=== PATIENT | female | born 1930 | race Caucasian/White ===

== ENCOUNTER → 2016-09-20 | Outpatient (CLI) | payer OTHER ==
[~2016-09-20] MED LIST: ACET-1311 PO; ACET325T96 PO; AMLO-110 PO; AMT24 PO; APIX1TAB PO; APR25 PO; ATOR-24 PO; BISA10SU7 RE; CALC-452 PO; CALC500C3 PO; CALCTAB13 PO; CITA10TA8 PO; CITA20TA4 PO; CLC100X PO; CLOP1TAB54 PO; CYAN10002 IM; CYNI1000 IM; DEXT20CA PO; DOCU-94 PO; FURO-85 PO; GABA-113 PO; HEALTH SHAKE PO; IMDSR60 PO; INSDGI SC; LACT10SO17 PO; LEVO150T PO; LEVO175T3 PO; LINA1CAP PO; LISI40TA PO; LPR25 PO; MAGN400T6 PO; MOML PO; MULTTAB58 PO; NRV5 PO; NTRGSL4 SL; NVLGI SC; POTA-335 PO; POTA20TA13 PO; PRLSR20 PO; SENN8.6T94 PO; WARF-281 PO; WARF7.5T4 PO; ZNTT/150 PO
[2016-09-20 09:26] LABS: PROTHROMBIN TIME (PATIENT) 40.1 SECONDS (9.0-12.0)
[2016-09-20 09:40] LABS: INR 3.6 (0.9-1.1)
== END ==
LOC: C.LABUPNIT 08:32
PROVIDERS: ATTEND Family Medicine
DX: I25.10 Atherosclerotic heart disease of native coronary artery without angina pectoris (principal)

== ENCOUNTER → 2016-10-04 | Outpatient (CLI) | payer OTHER ==
[2016-10-04 10:43] LABS: ESTIMATED AVERAGE GLUCOSE 140 mg/dl; HA1C FLAG Normal (Normal)
--- NOTE | 2016-10-09 12:08 | CODING QUERY MEDICAL NECESSITY ---
SUPPORTING DIAGNOSIS NEEDED Dr. Alston, A supporting diagnosis is required for the test/procedure performed on this patient in order for us to be reimbursed by the patient's insurance. Please provide a supporting diagnosis for the following test/procedure listed below next to the test name along with your signature. *If there is no additional diagnosis for this patient that would support the following test/procedure please document that below next to the test/procedure. Test(s)/Procedure(s) that require a supporting diagnosis: * [id number] GLYCATED HEMOGLOBIN DIAGNOSIS: DATE OF SERVICE: 10/04/16 Provider Signature: Date: Thank you Saran Hines [facility] Information Management Once completed, please kindly fax back to [phone] For questions please call [phone]
== END ==
LOC: C.LABUPNIT 08:05
PROVIDERS: ATTEND Family Medicine
DX: I48.91 Unspecified atrial fibrillation (principal); E11.9 Type 2 diabetes mellitus without complications

== ENCOUNTER → 2016-10-11 | Outpatient (CLI) | payer OTHER ==
[2016-10-11 09:19] LABS: INR 3.5 (0.9-1.1); PROTHROMBIN TIME (PATIENT) 39.8 SECONDS (9.0-12.0)
--- NOTE | 2016-10-18 12:09 | CODING QUERY NO DIAGNOSIS ---
TREATMENT RENDERED WITHOUT A DIAGNOSIS : 1930 To promote full compliance with coding requirements relating to patient care, physician participation is requested in all cases of digital technician uncertainty. Please assist us with providing a diagnosis/symptom for the test(s) below: A diagnosis/symptom was not documented on your Order. A valid diagnosis/symptom is required to bill all insurances. Please remember that we are unable to code a diagnosis of rule out, probable, possible, questionable, or suspected. DOS: 10/11/16 Tests that require a diagnosis: * PROTHROMBIN TIME PRO DIAGNOSIS: Provider Signature: Date: Thank you Mirlande Solis [employer] Information Management Once completed, please kindly fax back to [phone] For questions please call [phone]
== END ==
LOC: C.LABUPNIT 08:54
PROVIDERS: ATTEND Family Medicine
DX: I48.91 Unspecified atrial fibrillation (principal)

== ENCOUNTER → 2016-10-17 | Outpatient (CLI) | payer OTHER ==
[2016-10-17 08:50] LABS: BASO % 0.4 %; BASO ABS # 0.02 K/uL (0-0.2); COMPLETE YES; EOS % 3.8 %; HEMATOCRIT 32.9 % (37-47); LYMPH % 44.6 %; LYMPH ABS # 1.99 K/uL (1.2-3.4); MEAN CELL VOLUME 96.5 fL (80-100); MEAN CORPUSCULAR HEMOGLOBIN 32.6 pg (25-34); MEAN CORPUSCULAR HGB CONC 33.7 g/dl (32-36); MEAN PLATELET VOLUME 11.6 fL (7.4-10.4); MONO % 11.4 %; NEUT % 39.8 %; PLATELET COUNT 150 K/uL (130-400); RED BLOOD COUNT 3.41 M/uL (4.2-5.4); WHITE BLOOD COUNT 4.46 K/uL (4.8-10.8)
[2016-10-17 08:56] LABS: BLOOD UREA NITROGEN 22 mg/dl (7-18); BUN/CREATININE RATIO 24.5 (10-20); CALCIUM 8.4 mg/dl (8.5-10.1); CARBON DIOXIDE 25 mmol/L (21-32); CHLORIDE 108 mmol/L (98-107); CREATININE 0.89 mg/dl (0.60-1.20); GLUCOSE 105 mg/dl (70-99); POTASSIUM 4.1 mmol/L (3.5-5.1); SODIUM 143 mmol/L (136-145)
[2016-10-17 08:58] LABS: INR 2.6 (0.9-1.1); PROTHROMBIN TIME (PATIENT) 28.8 SECONDS (9.0-12.0)
== END ==
LOC: C.LABUPNIT 08:32
PROVIDERS: ATTEND Family Medicine
DX: I70.1 Atherosclerosis of renal artery (principal)

== ENCOUNTER → 2016-10-21 | Outpatient (CLI) | payer OTHER ==
[2016-10-21 10:16] LABS: BLOOD UREA NITROGEN 22 mg/dl (7-18); BUN/CREATININE RATIO 25.6 (10-20); CALCIUM 8.5 mg/dl (8.5-10.1); CARBON DIOXIDE 26 mmol/L (21-32); CHLORIDE 106 mmol/L (98-107); CREATININE 0.85 mg/dl (0.60-1.20); GLUCOSE 99 mg/dl (70-99); MAGNESIUM 2.2 mg/dl (1.8-2.4); POTASSIUM 4.1 mmol/L (3.5-5.1); SODIUM 142 mmol/L (136-145)
== END ==
LOC: C.LABUPNIT 08:46
PROVIDERS: ATTEND Family Medicine
DX: I15.9 Secondary hypertension, unspecified (principal); F22 Delusional disorders

== ENCOUNTER → 2016-10-24 | Outpatient (CLI) | payer OTHER ==
[2016-10-24 09:18] LABS: INR 3.5 (0.9-1.1); PROTHROMBIN TIME (PATIENT) 39.9 SECONDS (9.0-12.0)
== END ==
LOC: C.LABUPNIT 08:20
PROVIDERS: ATTEND Family Medicine
DX: I48.1 Persistent atrial fibrillation (principal)

== ENCOUNTER → 2016-10-25 | Outpatient (CLI) | payer OTHER ==
[2016-10-25 09:45] LABS: INR 3.4 (0.9-1.1); PROTHROMBIN TIME (PATIENT) 38.8 SECONDS (9.0-12.0)
== END ==
LOC: C.LABUPNIT 09:13
PROVIDERS: ATTEND Family Medicine
DX: I48.91 Unspecified atrial fibrillation (principal)

== ENCOUNTER → 2016-10-28 | Outpatient (CLI) | payer OTHER ==
--- NOTE | 2016-10-28 17:35 | ECHOCARDIOGRAM REPORT ---
*NOTICE TO RECEIVING LIBERTARIAN AGENCY This information is strictly Confidential and protected under [place] law. [place] law prohibits you from making any further disclosure of this information unless further disclosure is expressly permitted by the written consent of the person to whom it pertains or is authorized by law. A general authorization for the release of medical or other information is not sufficient for this purpose. Hospital accepts no responsibility if the information is made available to any other person, INCLUDING THE PATIENT. Interpretation Summary * Name: DIANA GLYNN Study Date: 10/28/2016 02:14 PM BP: 163/66 mmHg * Patient Location: [facility] HR: 90 * : 1930 (M/d/yyyy) Gender: Female Height: 65 in * Age: 86 yrs Ethnicity: [place] Weight: 145 lb * Ordering Physician: Adair Alston * Performed By: Lucia Latham * * Reason For Study: SYNCOPE * BSA: 1.7 m2 * -- Conclusions -- * 1. Small LV cavity size. Moderate concentric LVH with basal septal asymmetric hypertrophy. * 2. Hyperdynamic LV function. LVEF >70%. No regional wall motion abnormalities. * 3. Borderline dilated RV, normal RV function. * 4. Mild aortic valve sclerosis without stenosis. Mild aortic insufficiency * 5. Thickened mitral valve with mitral annular calcification. * 6. Mild mitral stenosis, mild mitral regurgitation. * 7. Mildly dilated ascending aorta * 8. Compared with prior study on 01/29/2016: No significant change Procedure Details * A complete two-dimensional transthoracic echocardiogram was performed (2D, M-mode, Doppler and color flow Doppler). Left Ventricle * The left ventricular cavity is small. * There is moderate concentric left ventricular hypertrophy. * Focal thickening of the basal septum with no evidence of left ventricular outflow obstruction. * Ejection Fraction = >70 %. * No regional wall motion abnormalities noted. Right Ventricle * Borderline right ventricular enlargement. * The right ventricular systolic function is normal as assessed by tricuspid annular plane systolic excursion (TAPSE) (normal >1.5 cm). Atria * The left atrium is severely dilated. * The right atrium is mildly dilated. * No ASD detected; PFO is not assessed. Mitral Valve * There is mild to moderate mitral annular calcification. * The mitral valve leaflets appear thickened, but open well. * There is mild mitral stenosis. * There is mild mitral regurgitation. Tricuspid Valve * The tricuspid valve is not well visualized. * There is trace tricuspid regurgitation. Aortic Valve * Aortic valve sclerosis mild, without significant aortic valvular stenosis. * The aortic valve is trileaflet. * Subvalvular turbulence * Mild aortic regurgitation. Pulmonic Valve * The pulmonary valve is inadequately visualized, but the Doppler data is adequate for interpretation. * There is no pulmonic valvular stenosis. * Mild pulmonic valvular regurgitation. Great Vessels * Mildly dilated ascending aorta. Pericardium/Pleural * There is no pericardial effusion. MMode 2D Measurements and Calculations IVSd 1.7 cm IVSs 2.1 cm LVIDd 4.1 cm LVIDs 2.3 cm LVPWd 1.3 cm LVPWs 2.1 cm IVS/LVPW 1.3 FS 45.2 % EDV(Teich) 74.6 ml ESV(Teich) 17.2 ml EF(Teich) 76.9 % EDV(cubed) 69.4 ml ESV(cubed) 11.5 ml EF(cubed) 83.5 % % IVS thick 24.8 % % LVPW thick 66.6 % LV mass(C)d 231.6 grams LV mass(C)dI 134.2 grams/m\S\2 LV mass(C)s 211.4 grams LV mass(C)sI 122.5 grams/m\S\2 SV(Teich) 57.4 ml SI(Teich) 33.3 ml/m\S\2 SV(cubed) 57.9 ml SI(cubed) 33.6 ml/m\S\2 ACS 0.63 cm LA dimension 4.7 cm asc Aorta Diam 3.9 cm LVOT diam 1.7 cm LVOT area 2.2 cm\S\2 LVAd ap4 26.8 cm\S\2 LVLd ap4 7.1 cm EDV(MOD-sp4) 80.5 ml EDV(sp4-el) 85.4 ml LVAs ap4 11.4 cm\S\2 LVLs ap4 5.3 cm ESV(MOD-sp4) 20.5 ml ESV(sp4-el) 20.9 ml EF(MOD-sp4) 74.5 % EF(sp4-el) 75.6 % LVAd ap2 26.4 cm\S\2 LVLd ap2 7.7 cm EDV(MOD-sp2) 72.9 ml EDV(sp2-el) 76.9 ml LVAs ap2 11.0 cm\S\2 LVLs ap2 6.1 cm ESV(MOD-sp2) 17.6 ml ESV(sp2-el) 16.8 ml EF(MOD-sp2) 75.8 % EF(sp2-el) 78.1 % LVLd %diff 7.3 % EDV(MOD-bp) 79.5 ml LVLs %diff 12.5 % ESV(MOD-bp) 20.0 ml EF(MOD-bp) 74.8 % SV(MOD-sp4) 60.0 ml SI(MOD-sp4) 34.8 ml/m\S\2 SV(MOD-sp2) 55.3 ml SI(MOD-sp2) 32.0 ml/m\S\2 SV(MOD-bp) 59.4 ml SI(MOD-bp) 34.4 ml/m\S\2 SV(sp4-el) 64.6 ml SI(sp4-el) 37.4 ml/m\S\2 SV(sp2-el) 60.1 ml SI(sp2-el) 34.8 ml/m\S\2 Doppler Measurements and Calculations MV E max stephanie 104.2 cm/sec MV A max stephanie 142.7 cm/sec MV E/A 0.73 MV V2 max 169.3 cm/sec MV max PG 11.5 mmHg MV V2 mean 99.8 cm/sec MV mean PG 4.5 mmHg MV V2 VTI 44.4 cm MVA(VTI) 2.1 cm\S\2 MV P1/2t max stephanie 143.1 cm/sec MV P1/2t 68.9 msec MVA(P1/2t) 3.2 cm\S\2 MV dec slope 607.9 cm/sec\S\2 MV dec time 0.31 sec Ao V2 max 206.0 cm/sec Ao max PG 17.0 mmHg Ao max PG (full) 7.2 mmHg AXEL(V,A) 1.7 cm\S\2 AXEL(V,D) 1.7 cm\S\2 AI max stephanie 327.0 cm/sec AI max PG 42.8 mmHg AI dec slope 172.6 cm/sec\S\2 AI P1/2t 554.9 msec LV V1 max PG 9.8 mmHg LV V1 mean PG 5.6 mmHg LV V1 max 156.2 cm/sec LV V1 mean 110.7 cm/sec LV V1 VTI 41.5 cm MR max stephanie 539.8 cm/sec MR max PG 116.6 mmHg SV(LVOT) 92.9 ml SI(LVOT) 53.9 ml/m\S\2 PA V2 max 89.1 cm/sec PA max PG 3.2 mmHg PI end-d stephanie 146.4 cm/sec TR max stephanie 241.2 cm/sec
== END ==
LOC: C.CPL 13:06
PROVIDERS: ATTEND Family Medicine
DX: R55 Syncope and collapse (principal)

== ENCOUNTER → 2016-10-30 | Outpatient (CLI) | payer OTHER ==
[2016-10-30 09:14] LABS: INR 1.5 (0.9-1.1); PROTHROMBIN TIME (PATIENT) 16.3 SECONDS (9.0-12.0)
== END ==
LOC: C.LABUPNIT 08:54
PROVIDERS: ATTEND Family Medicine
DX: I48.91 Unspecified atrial fibrillation (principal)

== ENCOUNTER → 2016-11-04 | Outpatient (CLI) | payer OTHER ==
[2016-11-04 10:01] LABS: INR 2.6 (0.9-1.1); PROTHROMBIN TIME (PATIENT) 28.9 SECONDS (9.0-12.0)
== END ==
LOC: C.LABUPNIT 09:32
PROVIDERS: ATTEND Family Medicine
DX: I48.91 Unspecified atrial fibrillation (principal)

== ENCOUNTER → 2016-11-12 | Outpatient (CLI) | payer OTHER ==
[2016-11-12 09:59] LABS: PROTHROMBIN TIME (PATIENT) 49.7 SECONDS (9.0-12.0)
[2016-11-12 10:09] LABS: INR 4.4 (0.9-1.1)
--- NOTE | 2016-11-22 08:10 | CODING QUERY NO DIAGNOSIS ---
TREATMENT RENDERED WITHOUT A SIGNATURE : 1930 To promote full compliance with coding requirements relating to patient care, physician participation is requested in all cases of academic vice president uncertainty. Please assist us with providing a SIGNATURE for the test(s) below: A SIGNATURE was not documented on your Order. A valid SIGNATURE is required to bill all insurances. Please remember that we are unable to code a diagnosis of rule out, probable, possible, questionable, or suspected. Tests that require a SIGNATURE: DOS: 11/12/16 * PROTHROMBIN TIME PRO DIAGNOSIS: I48.91 Provider Signature: Date: Thank you Mirlande Solis Health Information Management Once completed, please kindly fax back to [phone] For questions please call [phone]
== END ==
LOC: C.LABUPNIT 09:30
PROVIDERS: ATTEND Family Medicine
DX: I48.91 Unspecified atrial fibrillation (principal)

== ENCOUNTER → 2016-11-18 | Outpatient (CLI) | payer OTHER ==
[2016-11-18 10:35] LABS: INR 1.9 (0.9-1.1); PROTHROMBIN TIME (PATIENT) 21.2 SECONDS (9.0-12.0)
== END ==
LOC: C.LABUPNIT 10:00
PROVIDERS: ATTEND Family Medicine
DX: I70.1 Atherosclerosis of renal artery (principal)

== ENCOUNTER → 2016-11-22 | Outpatient (CLI) | payer OTHER ==
[2016-11-22 10:01] LABS: INR 2.7 (0.9-1.1)
== END ==
LOC: C.LABUPNIT 09:27
PROVIDERS: ATTEND Family Medicine
DX: I70.1 Atherosclerosis of renal artery (principal)

== ENCOUNTER → 2016-11-29 | Outpatient (CLI) | payer OTHER ==
[2016-11-29 08:47] LABS: INR 2.3 (0.9-1.1)
--- NOTE | 2016-12-06 08:32 | CODING QUERY NO DIAGNOSIS ---
TREATMENT RENDERED WITHOUT A DIAGNOSIS : 1930 To promote full compliance with coding requirements relating to patient care, physician participation is requested in all cases of stunner animal uncertainty. Please assist us with providing a diagnosis/symptom for the test(s) below: A diagnosis/symptom was not documented on your Order. A valid diagnosis/symptom is required to bill all insurances. Please remember that we are unable to code a diagnosis of rule out, probable, possible, questionable, or suspected. Tests that require a diagnosis: DOS: 11/29/16 * PROTHROMBIN TIME PRO DIAGNOSIS: Provider Signature: Date: Thank you Mirlande Solis [employer] Information Management Once completed, please kindly fax back to [phone] For questions please call [phone]
== END ==
LOC: C.LABUPNIT 08:08
PROVIDERS: ATTEND Family Medicine
DX: I48.91 Unspecified atrial fibrillation (principal)

== ENCOUNTER → 2016-12-05 | Outpatient (CLI) | payer OTHER ==
[2016-12-05 09:41] LABS: INR 2.4 (0.9-1.1); PROTHROMBIN TIME (PATIENT) 26.5 SECONDS (9.0-12.0)
== END ==
LOC: C.LABUPNIT 08:55
PROVIDERS: ATTEND Family Medicine
DX: I48.91 Unspecified atrial fibrillation (principal)

== ENCOUNTER → 2016-12-06 | Outpatient (CLI) | payer OTHER ==
[2016-12-06 08:54] LABS: INR 2.3 (0.9-1.1)
== END ==
LOC: C.LABUPNIT 08:33
PROVIDERS: ATTEND Family Medicine
DX: I48.91 Unspecified atrial fibrillation (principal)

== ENCOUNTER → 2016-12-19 | Outpatient (CLI) | payer OTHER ==
[2016-12-19 09:56] LABS: INR 2.4 (0.9-1.1); PROTHROMBIN TIME (PATIENT) 26.1 SECONDS (9.0-12.0)
== END ==
LOC: C.LABUPNIT 09:36
PROVIDERS: ATTEND Family Medicine
DX: I48.91 Unspecified atrial fibrillation (principal)

== ENCOUNTER → 2016-12-20 | Outpatient (CLI) | payer OTHER | LOC: C.LABUPNIT 14:41 | PROVIDERS: ATTEND Family Medicine | DX: J10.1 Influenza due to other identified influenza virus with other respiratory manifestations (principal) ==

== ENCOUNTER → 2016-12-24 | Outpatient (CLI) | payer OTHER ==
[2016-12-24 08:52] LABS: ALT/SGPT 53 U/L (12-78); AST/SGOT 60 U/L (15-37); BLOOD UREA NITROGEN 18 mg/dl (7-18); BUN/CREATININE RATIO 19.4 (10-20); CALCIUM 8.2 mg/dl (8.5-10.1); CARBON DIOXIDE 27 mmol/L (21-32); CHLORIDE 106 mmol/L (98-107); CHOLESTEROL 79 mg/dl (0-200); GLUCOSE 72 mg/dl (70-99); POTASSIUM 4.2 mmol/L (3.5-5.1); SODIUM 140 mmol/L (136-145); TRIGLYCERIDES 79 mg/dl (0-150); VERY LOW DENSITY LIPOPROT CALC 16 mg/dl
[2016-12-24 09:02] LABS: ALB/GLOB RATIO 0.8 (0.9-2); ALKALINE PHOSPHATASE 56 U/L (45-117); CHOLESTEROL/HDL RATIO 2.4; HDL CHOLESTEROL 33 mg/dl; LDL CHOLESTEROL CALCULATED 30 mg/dl
[2016-12-24 09:18] LABS: HEMATOCRIT 36.3 % (37-47); MEAN CORPUSCULAR HEMOGLOBIN 32.1 pg (25-34); MEAN CORPUSCULAR HGB CONC 34.2 g/dl (32-36); PLATELET COUNT 113 K/uL (130-400); PLT ESTIMATE DECREASED; RED BLOOD COUNT 3.86 M/uL (4.2-5.4); WHITE BLOOD COUNT 4.09 K/uL (4.8-10.8)
[2016-12-24 10:17] LABS: ESTIMATED AVERAGE GLUCOSE 143 mg/dl; HA1C FLAG Normal (Normal)
--- NOTE | 2016-12-30 13:17 | CODING QUERY MEDICAL NECESSITY ---
CQSUPPORTING DIAGNOSIS NEEDED A supporting diagnosis is required for the test/procedure performed on this patient in order for us to be reimbursed by the patient's insurance. Please provide a supporting diagnosis for the following test/procedure listed below next to the test name along with your signature. *If there is no additional diagnosis for this patient that would support the following test/procedure please document that below next to the test/procedure. Test(s)/Procedure(s) that require a supporting diagnosis: DOS 12/24/16 VITAMIN D TEST QUERY RETURNED WITH SIGNATURE BUT NO DIAGNOSIS PLEASE ADD DIAGNOSIS TO COVER TEST AND ADD SIGNATURE THANK YOU Provider Signature: Date: Thank you Cary Cabral [facility] Information Management Once completed, please kindly fax back to [phone] For questions please call [phone]
== END ==
LOC: C.LABUPNIT 08:14
PROVIDERS: ATTEND Family Medicine
DX: E78.00 Pure hypercholesterolemia, unspecified (principal); G89.29 Other chronic pain; E11.9 Type 2 diabetes mellitus without complications; E08.42 Diabetes mellitus due to underlying condition with diabetic polyneuropathy; E55.9 Vitamin D deficiency, unspecified

== ENCOUNTER → 2016-12-26 | Outpatient (CLI) | payer OTHER ==
[2016-12-26 15:00] LABS: URINE APPEARANCE CLEAR (CLEAR); URINE BILIRUBIN NEG (NEG); URINE COLOR DK YELLOW; URINE EPITHELIAL CELL AUTO >30 /lpf (0-5); URINE NITRITE NEG (NEG); URINE SPECIFIC GRAVITY 1.017 (1.000-1.030); UROBILINOGEN NEG (NEG); ZZURINE CULT IF INDIC CATH NO
[2016-12-26 15:08] LABS: MANUAL MICROSCOPIC REQUIRED? NO; REVIEW REQ? YES
[2016-12-26 15:25] LABS: URINE PATH CASTS 0-3 WBC CASTS /lpf (0)
== END ==
LOC: C.LABSPEC 13:21
PROVIDERS: ATTEND Family Medicine
DX: N39.0 Urinary tract infection, site not specified (principal)

== ENCOUNTER → 2017-01-02 | Outpatient (CLI) | payer OTHER ==
[2017-01-02 08:47] LABS: PROTHROMBIN TIME (PATIENT) 75.2 SECONDS (9.0-12.0)
[2017-01-02 08:57] LABS: INR 6.5 (0.9-1.1)
--- NOTE | 2017-01-06 14:29 | CODING QUERY NO DIAGNOSIS ---
TREATMENT RENDERED WITHOUT A DIAGNOSIS 30 To promote full compliance with coding requirements relating to patient care, physician participation is requested in all cases of director information uncertainty. Please assist us with providing a diagnosis/symptom for the test(s) below: A diagnosis/symptom was not documented on your Order. A valid diagnosis/symptom is required to bill all insurances. Please remember that we are unable to code a diagnosis of rule out, probable, possible, questionable, or suspected. DOS 01/02/17 Tests that require a diagnosis: * PT/INR DIAGNOSIS: Provider Signature: Date: Thank you Rosmery Leger [facility] Information Management Once completed, please kindly fax back to [phone] For questions please call [phone]
== END ==
LOC: C.LABUPNIT 08:05
PROVIDERS: ATTEND Family Medicine
DX: I48.91 Unspecified atrial fibrillation (principal)

== ENCOUNTER → 2017-01-05 | Outpatient (CLI) | payer OTHER ==
[2017-01-05 11:25] LABS: INR 1.7 (0.9-1.1); PROTHROMBIN TIME (PATIENT) 18.1 SECONDS (9.0-12.0)
== END ==
LOC: C.LABUPNIT 16:48
PROVIDERS: ATTEND Family Medicine
DX: I48.91 Unspecified atrial fibrillation (principal)

== ENCOUNTER → 2017-01-23 | Outpatient (CLI) | payer OTHER | LOC: C.LABUPNIT 08:46 | PROVIDERS: ATTEND Nurse Practitioner Family | DX: E03.9 Hypothyroidism, unspecified (principal) ==

== ENCOUNTER → 2017-02-03 | Outpatient (CLI) | payer OTHER ==
[2017-02-03 11:13] LABS: URINE APPEARANCE CLOUDY (CLEAR); URINE BILIRUBIN NEG (NEG); URINE COLOR YELLOW; URINE EPITHELIAL CELL AUTO >30 /lpf (0-5); URINE NITRITE NEG (NEG); UROBILINOGEN NEG (NEG); ZZURINE CULT IF INDIC CATH YES
[2017-02-03 11:29] LABS: MANUAL MICROSCOPIC REQUIRED? NO; REVIEW REQ? NO; SULFASALICYLIC ACID POS (NEG)
== END ==
LOC: C.LABUPNIT 09:53
PROVIDERS: ATTEND Nurse Practitioner Family
DX: N39.0 Urinary tract infection, site not specified (principal)

== ENCOUNTER 2017-02-24 06:22 | Observation (INO) | payer OTHER ==
[2017-02-24] VITALS (7 sets, daily range): BP systolic 128–210; BP diastolic 59–109; PULSE 62–77; TEMP 36.4–36.8; O2SAT 94–97; BMI 27.6
[~2017-02-24] VITALS: Ht 165.1 cm; Wt 74.3 kg
[~2017-02-24 06:22] MED LIST changes: -ACET-1311 PO; -APIX1TAB PO; -CALC-452 PO; -CALC500C3 PO; -CITA10TA8 PO; -CYNI1000 IM; -DOCU-94 PO; -LEVO175T3 PO; -LINA1CAP PO; -MAGN400T6 PO; -NRV5 PO; -POTA20TA13 PO; -ZNTT/150 PO
[2017-02-24] MEDS ORDERED: SODIUM CHLORIDE 0.9% 500ML 500 ML IV STA (06:35)
[2017-02-24] MEDS ORDERED: MoRPHine SULFATE 4 MG/ML 1 ML CARP\\VIAL IV STA (06:35)
[2017-02-24] MEDS ORDERED: ONDANSETRON INJ 2 MG/ML 2 ML VIAL IV STA (06:35)
[2017-02-24] MEDS ORDERED: SUCRALFATE 1 GM TAB PO STA (06:37)
[2017-02-24] MEDS ORDERED: GI COCKTAIL PO STA (06:37)
[2017-02-24] MEDS ORDERED: FAMOTIDINE 20 MG TAB PO STA (06:37)
[2017-02-24] MEDS ORDERED: ALBUTEROL 0.083% NEBU SOLN 3 ML VIAL INH STA (06:37)
--- NOTE | 2017-02-24 06:45 | EMERGENCY ROOM VISIT NOTE ---
History Report prepared by Santy: Carol Burger Under the Supervision of: Dr. Terell Amador M.D. First contact with patient: 06:28 Chief Complaint: CHEST PAIN Stated Complaint: CHEST PAIN History of Present Illness The patient is an 86 year old female who presents to the Emergency Room with complaints of constant left-sided chest pain that started 5.5 hours ago, around 0100. The history is limited secondary to confusion. When the patient started to experience the pain, detention staff gave her 3 nitro and she fell asleep so they let her sleep. When she woke up around 0400, she was still complaining of chest pain so they did an EKG, which EMS reported showed a complete block so their doctor sent her in. The patient came to the ED via ambulance from [facility]. The patient was given 1 nitroglycerin and 324 mg aspirin en route to the ED. They offered minimal relief of her symptoms. Source of History: patient, EMS History Limited By: other (confusion) Onset: 5.5 hours ago, around 0100 Position: chest (left) Quality: other (left-sided chest pain) Timing: constant Review of Systems See HPI for pertinent positives & negatives. A total of 10 systems reviewed and were otherwise negative. 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 (11) Renal artery atherosclerosis (12) TIA (transient ischemic attack) (13) Vitamin B12 deficiency Family History Hypertension Kidney disease Social History Smoking Status: Never Smoker Alcohol Use: none Drug Use: none Marital Status: single Housing Status: detention Occupation Status: retired Current/Historical Medications Scheduled Acetaminophen Tab (Tylenol), 650 MG PO Q8 Amlodipine (Norvasc), 5 MG PO DAILY Apixaban (Eliquis), 2.5 MG PO BID Atorvastatin (Lipitor), 40 MG PO DAILY Calcium Carbonate-Cholecalcife (Calcium 600 + D 600-200 mg-Unit), 1 TAB PO BID Citalopram Hydrobromide (Celexa), 10 MG PO DAILY Clopidogrel Bisulfate (Plavix), 75 MG PO DAILY Cyanocobalamin (Cyanocobalamin), 1,000 MCG IM WK Dextromethorphan Hbr-Quinidine (Nuedexta), 1 CAP PO BID Docusate Sodium (Colace), 100 MG PO BID Furosemide (Lasix), 20 MG PO QAM Gabapentin (Neurontin), 300 MG PO TID Hydralazine Hcl (Apresoline), 75 MG PO QID Insulin Aspart (Novolog), 0 SC BID Insulin Glargine (Lantus), 10 UNITS SC HS Isosorbide Mononitrate (Isosorbide Mononitrate ER), 60 MG PO BID Levothyroxine Sodium (Levothyroxine Sodium), 1 TAB PO DAILY Linaclotide (Linzess), 145 MCG PO QAM Lisinopril (Zestril), 40 MG PO DAILY Magnesium Oxide (Mag-Ox), 400 MG PO BID Metoprolol Tartrate (Lopressor), 12.5 MG PO BID Multiple Vitamin (Multivitamin), 1 TABLET PO DAILY Potassium Chloride Microencaps (Potassium Chloride Er), 20 MEQ PO DAILY Sennosides (Sennosides), 17.2 MG PO BID Scheduled PRN Acetaminophen (Tylenol), 650 MG PO Q6 PRN for Pain Calcium Carbonate (Tums), 2 TABS PO Q6 PRN for Heartburn Lactulose (Chronulac), 15 ML PO DAILY PRN for Constipation Nitroglycerin (Nitrostat), 0.4 MG SL UD PRN for Chest Pain Ranitidine (Zantac), 150 MG PO Q12 PRN for Heartburn Allergies Coded Allergies: No Known Allergies (Verified , 02/24/17) Physical Exam Vital Signs Date Time Temp Pulse Resp B/P (MAP) Pulse Ox O2 Delivery O2 Flow Rate FiO2 02/24/17 09:00 72 24 157/69 94 Room Air 02/24/17 07:43 78 28 208/92 94 Room Air 02/24/17 06:40 97 Room Air 02/24/17 06:40 97 Room Air 02/24/17 06:37 73 02/24/17 06:25 37.1 74 22 205/88 98 Room Air 02/24/17 06:25 97 Room Air Physical Exam GENERAL: Patient is a healthy-appearing well-nourished older female. Patient is hyperventilating on exam. HEAD: Normocephalic atraumatic EYES: Ocular movements intact pupils equal and react to light OROPHARYNX mucous membranes are moist no exudates present no erythema or edema present NECK: Supple no nuchal rigidity CHEST: Good equal expansion LUNGS: Clear and equal to auscultation CARDIAC: Normal S1 and S2 ABDOMEN: Soft nontender no guarding BACK: No CVA tenderness EXTREMITIES: No pain upon palpation normal muscle strength in all groups no clubbing cyanosis or edema NEURO: Patient is following commands is answering questions appropriately. Alert and oriented x3 Cranial Nerves 2-12 grossly intact Medical Decision & Procedures ER Provider Diagnostic Interpretation: Radiology results as stated below per my review and radiologist interpretation: CHEST ONE VIEW PORTABLE FINDINGS: Mild stable cardiomegaly. Slight fullness pulmonary vasculature. Diaphragms are smooth. IMPRESSION: No acute process. Chronic change. Electronically signed by: Shay Parish M.D. 02/24/2017 6:59 AM Dictated Date/Time: 02/24/2017 6:57 AM Laboratory Results 02/24/17 06:17 Red Blood Count 3.66, Mean Corpuscular Volume 98.4, Mean Corpuscular Hemoglobin 32.8, Mean Corpuscular Hemoglobin Concent 33.3, Mean Platelet Volume 11.6, Neutrophils (%) (Auto) 39.4, Lymphocytes (%) (Auto) 45.1, Monocytes (%) (Auto) 10.3, Eosinophils (%) (Auto) 4.1, Basophils (%) (Auto) 0.9, Neutrophils # (Auto ) 1.85, Lymphocytes # (Auto) 2.11, Monocytes # (Auto) 0.48, Eosinophils # (Auto ) 0.19, Basophils # (Auto) 0.04 02/24/17 06:17 Test 02/24/17 06:17 02/24/17 07:20 02/24/17 08:44 White Blood Count 4.68 K/uL (4.8-10.8) Red Blood Count 3.66 M/uL (4.2-5.4) Hemoglobin 12.0 g/dL (12.0-16.0) Hematocrit 36.0 % (37-47) Mean Corpuscular Volume 98.4 fL (80-100) Mean Corpuscular Hemoglobin 32.8 pg (25-34) Mean Corpuscular Hemoglobin Concent 33.3 g/dl (32-36) Platelet Count 172 K/uL (130-400) Mean Platelet Volume 11.6 fL (7.4-10.4) Neutrophils (%) (Auto) 39.4 % Lymphocytes (%) (Auto) 45.1 % Monocytes (%) (Auto) 10.3 % Eosinophils (%) (Auto) 4.1 % Basophils (%) (Auto) 0.9 % Neutrophils # (Auto) 1.85 K/uL (1.4-6.5) Lymphocytes # (Auto) 2.11 K/uL (1.2-3.4) Monocytes # (Auto) 0.48 K/uL (0.11-0.59) Eosinophils # (Auto) 0.19 K/uL (0-0.5) Basophils # (Auto) 0.04 K/uL (0-0.2) RDW Standard Deviation 52.0 fL (36.4-46.3) RDW Coefficient of Variation 14.5 % (11.5-14.5) Immature Granulocyte % (Auto) 0.2 % Immature Granulocyte # (Auto) 0.01 K/uL (0.00-0.02) Anion Gap 8.0 mmol/L (3-11) Estimated GFR () 68.0 Estimated GFR (Non- 58.7 BUN/Creatinine Ratio 26.3 (10-20) Calcium Level 8.5 mg/dl (8.5-10.1) Total Bilirubin 0.5 mg/dl (0.2-1) Direct Bilirubin mg/dl (0-0.2) Aspartate Amino Transf (AST/SGOT) 21 U/L (15-37) Alanine Aminotransferase (ALT/SGPT) 28 U/L (12-78) Alkaline Phosphatase 66 U/L (45-117) Total Creatine Kinase 85 U/L (26-192) Total Protein 7.2 gm/dl (6.4-8.2) Albumin 3.5 gm/dl (3.4-5.0) Lipase 87 U/L (73-393) Chemistry Specimen Hemolysis Prothrombin Time 11.2 SECONDS (9.0-12.0) Prothromb Time International Ratio 1.0 (0.9-1.1) D-Dimer 300 ug/L FEU (0-500) Bedside Troponin I < 0.030 ng/ml (0-0.045) Labs reviewed by ED physician. Medications Administered Medications (Trade) Dose Ordered Sig/Marcelina Route Start Time Stop Time Status Last Admin Dose Admin Morphine Sulfate (MoRPHine SULFATE INJ) 4 mg NOW STAT IV 02/24/17 06:35 02/24/17 06:37 DC 02/24/17 07:05 4 MG Ondansetron HCl (Zofran Inj) 4 mg NOW STAT IV 02/24/17 06:35 02/24/17 06:37 DC 02/24/17 07:04 4 MG Sodium Chloride 500 ml @ 999 mls/hr Q31M STAT IV 02/24/17 06:35 02/24/17 07:05 DC 02/24/17 07:05 999 MLS/HR Albuterol Sulfate (Ventolin 0.083% 2.5MG/3ML Neb) 2.5 mg NOW STAT INH 02/24/17 06:37 02/24/17 06:39 DC 02/24/17 07:05 2.5 MG Miscellaneous Medication (Gi Cocktail) 24 ml NOW STAT PO 02/24/17 06:37 02/24/17 06:39 DC 02/24/17 07:06 24 ML Famotidine (Pepcid Tab) 20 mg NOW STAT PO 02/24/17 06:37 02/24/17 06:39 DC 02/24/17 07:05 20 MG Sucralfate (Carafate Tab) 1 gm NOW STAT PO 02/24/17 06:37 02/24/17 06:39 DC 02/24/17 07:05 1 GM Al Hydroxide/Mg Hydroxide (Maalox Susp) 30 ml STK-MED ONCE .ROUTE 02/24/17 07:01 02/24/17 07:02 DC 02/24/17 07:06 30 ML Lidocaine HCl (Xylocaine Jelly 2%) 30 ml STK-MED ONCE EXT 02/24/17 07:01 02/24/17 07:03 DC 02/24/17 07:06 30 ML Lorazepam (Ativan Inj) 0.5 mg NOW STAT IV 02/24/17 07:45 02/24/17 07:47 DC 02/24/17 08:05 0.5 MG Furosemide (Lasix Inj) 20 mg NOW STAT IV 02/24/17 07:47 02/24/17 07:49 DC 02/24/17 08:05 20 MG ECG Indication: chest pain Rate (beats per minute): 68 Rhythm: sinus with SA Findings: LBBB, no acute ischemic change Comparison ECG Date: 02/11/2016 Change: no significant change Change: Repeat EKG on 02/24/2017 showed sinus rhythm, rate of 77, short MA, no ectopy, no acute ischemic changes ED Course 0630: Past medical records reviewed. The patient was evaluated in room A10. A complete history and physical examination was performed. 0635: Ordered Sodium Chloride 500 ml @ 999 mls/hr IV, Zofran Inj 4 mg IV, Morphine Sulfate 4 mg IV 0637: Ordered Pepcid Tab 20 mg PO, GI Cocktail 24 ml PO, Albuterol Sulfate 2.5 mg INH 0701: Ordered Maalox Susp 30 ml PO 0745: Ordered Ativan Inj 0.5 mg IV 0747: Ordered Lasix Inj 20 mg IV 0910: Upon reexamination the patient is resting comfortably. I discussed results and treatment plan with the patient and her family. They verbalize agreement and understanding. The patient will be evaluated for further management. 0915: I discussed the patient's case with Dr. Leeann Solorzano, he has agreed to evaluate the patient for further management and care. Medical Decision Differential diagnosis: Etiologies such as cardiac ischemia, aortic dissection, pulmonary embolism, pneumonia, pneumothorax, musculoskeletal, infections, pericarditis, myocarditis , esophageal rupture, gastrointestinal, as well as others were entertained. Medication Reconciliation: I attest that I have personally reviewed the patient' s current medication list. Blood Pressure Screening: Patient was found to have an elevated blood pressure and was referred to their primary care doctor for recheck and further treatment This is an 86-year-old female who presents emergency department complaining of severe chest pain. The patient's chest pain did not respond to nitroglycerin. She was given 324 mg of aspirin. Patient does appear to be hyperventilating search therefore she was given morphine. Repeat exam revealed the patient to still be having her chest pain. She was given a GI cocktail Pepcid and Carafate as well as Ativan. The patient continue to have her chest pain is requesting admission. She has a normal EKG as well as normal CK-MB troponin. I did discuss case with the hospitalist service who agreed to admit the patient. Patient was in agreement with history treatment plan. Consults Time Called: 910 Consulting Physician: Dr. Leeann Solorzano Returned Call: [phone] I discussed the patient's case with Dr. Leeann Solorzano, he has agreed to evaluate the patient for further management and care. Impression Primary Impression: Precordial chest pain Scribe Attestation The scribe's documentation has been prepared under my direction and personally reviewed by me in its entirety. I confirm that the note above accurately reflects all work, treatment, procedures, and medical decision making performed by me. Departure Information Dispostion Being Evaluated By Hospitalist Referrals María Shepard (PCP) Patient Instructions My [facility]
[2017-02-24 06:58] LABS: BASO % 0.9 %; BASO ABS # 0.04 K/uL (0-0.2); COMPLETE YES; EOS % 4.1 %; IG% 0.2 %; LYMPH % 45.1 %; LYMPH ABS # 2.11 K/uL (1.2-3.4); MEAN CELL VOLUME 98.4 fL (80-100); MEAN CORPUSCULAR HEMOGLOBIN 32.8 pg (25-34); MEAN CORPUSCULAR HGB CONC 33.3 g/dl (32-36); MEAN PLATELET VOLUME 11.6 fL (7.4-10.4); MONO % 10.3 %; NEUT % 39.4 %; PLATELET COUNT 172 K/uL (130-400); RED BLOOD COUNT 3.66 M/uL (4.2-5.4); WHITE BLOOD COUNT 4.68 K/uL (4.8-10.8)
--- NOTE | 2017-02-24 07:00 | DIAGNOSTIC IMAGING REPORT ---
CHEST ONE VIEW PORTABLE CLINICAL HISTORY: CHEST PAIN dyspnea COMPARISON STUDY: 02/11/2016 FINDINGS: Mild stable cardiomegaly. Slight fullness pulmonary vasculature. Diaphragms are smooth. IMPRESSION: No acute process. Chronic change. Electronically signed by: Shay Parish M.D. 02/24/2017 6:59 AM Dictated Date/Time: 02/24/2017 6:57 AM
[2017-02-24] MEDS ORDERED: ALUMINUM/MAGNESIUM SUSP 30 ML UDC ONE (07:01)
[2017-02-24] MEDS ORDERED: LIDOCAINE HCL 2% JELLY 30 ML TUBE EXT ONE (07:01)
[2017-02-24] MEDS ORDERED: CYNI1000 IM (07:09)
[2017-02-24] MEDS ORDERED: CITA10TA8 PO (07:09)
[2017-02-24] MEDS ORDERED: LEVO175T3 PO (07:10)
[2017-02-24] MEDS ORDERED: LINA1CAP PO (07:12)
[2017-02-24] MEDS ORDERED: DOCU-94 PO (07:13)
[2017-02-24] MEDS ORDERED: APIX1TAB PO (07:13)
[2017-02-24] MEDS ORDERED: MAGN400T6 PO (07:15)
[2017-02-24] MEDS ORDERED: CALC-452 PO (07:17)
[2017-02-24] MEDS ORDERED: POTA20TA13 PO (07:17)
[2017-02-24] MEDS ORDERED: ZNTT/150 PO (07:25)
[2017-02-24] MEDS ORDERED: CALC500C3 PO (07:25)
[2017-02-24] MEDS ORDERED: ACET-1311 PO ×2 (07:27)
[2017-02-24 07:28] LABS: ALKALINE PHOSPHATASE 66 U/L (45-117); ALT/SGPT 28 U/L (12-78); AST/SGOT 21 U/L (15-37); BLOOD UREA NITROGEN 23 mg/dl (7-18); BUN/CREATININE RATIO 26.3 (10-20); CALCIUM 8.5 mg/dl (8.5-10.1); CARBON DIOXIDE 27 mmol/L (21-32); CHLORIDE 109 mmol/L (98-107); CKMB/CK RATIO 1.8 (0-3.0); CREATININE 0.89 mg/dl (0.60-1.20); GLUCOSE 77 mg/dl (70-99); POTASSIUM 4.5 mmol/L (3.5-5.1); SODIUM 144 mmol/L (136-145)
[2017-02-24 07:44] LABS: PROTHROMBIN TIME (PATIENT) 11.2 SECONDS (9.0-12.0)
[2017-02-24] MEDS ORDERED: LORAZEPAM 2 MG/ML 1 ML VIAL IV STA (07:45)
[2017-02-24] MEDS ORDERED: FUROSEMIDE 40 MG/4 ML VIAL IV STA (07:47)
[2017-02-24] MEDS ORDERED: HydrALAZINE HCL 20 MG/ML VIAL IV. PRN (11:15)
[2017-02-24] MEDS ORDERED: NITROGLYCERIN 0.4 MG SL PER TAB CHARGE SL PRN (12:15)
[2017-02-24] MEDS ORDERED: ACETAMINOPHEN 325 MG TAB PO PRN (12:15)
[2017-02-24] MEDS ORDERED: ONDANSETRON INJ 2 MG/ML 2 ML VIAL IV PRN (12:15)
[2017-02-24] MEDS ORDERED: PHARMACY GLYCEMIC MGMT CONSULT PRN (13:14)
[2017-02-24] MEDS ORDERED: GLUCOSE 10 TABS/TUBE PO PRN (13:15)
[2017-02-24] MEDS ORDERED: GLUCOSE 40% GEL 15 GM TUBE PO PRN (13:15)
[2017-02-24] MEDS ORDERED: GLUCAGON FOR INJ 1 MG VIAL SQ PRN (13:15)
[2017-02-24] MEDS ORDERED: DEXTROSE 50% 50 ML SYR IV PRN (13:15)
--- NOTE | 2017-02-24 14:02 | History and Physical ---
History & Physical Date & Time of Service: Feb 24, 2017 ~ 11:45 Chief Complaint: Chest Pain Primary Care Physician: María Shepard History of Present Illness 86 year old female who presents to the ER with chest pain. Patient is currently a resident at [facility]. History is somewhat limited due to her underlying mental status. Chest pain started sometime throughout the night. She is unable to describe the pain. She reports "it wasn't too bad". She reports it radiated into her neck and and left arm. She also reports associated shortness of breath, diaphoresis, and nausea. Per ER documentation, patient was given 3 nitro tabs at the [facility] and then went back to sleep. Patient reports she is currently chest pain free. Further history is unobtainable due to her mental status. Upon arrival to the ER, patient's BP was elevated at 205/88. EKG does not show any acute ST changes and initial troponin is negative. She was given IVF, Zofran, morphine, Carafate, Pepcid, nebulizer, GI cocktail, Ativan, and IV furosemide. BP initially improved but then love again to 210/90. She was given Hydralazine 10mg IV and BP has improved. Past Medical/Surgical History Medical Problems: (1) Atrial fibrillation Status: Chronic (2) CAD (coronary artery disease) Permanent Comment: details unknown Status: Chronic (3) Chronic pain Status: Chronic (4) Depression Status: Chronic (5) DM (diabetes mellitus) Status: Chronic (6) GERD (gastroesophageal reflux disease) Status: Chronic (7) HLD (hyperlipidemia) Status: Chronic (8) HTN (hypertension) Status: Chronic (9) Hypothyroidism Status: Chronic (10) Pseudobulbar affect Status: Chronic (11) Renal artery atherosclerosis Status: Chronic (12) TIA (transient ischemic attack) Status: Chronic (13) Vitamin B12 deficiency Status: Chronic Family History non contributory due to patient's advanced age Social History Smoking Status: Never Smoker Alcohol Use: none Housing status: [facility] Multi-Drug Resistant Organisms History of MDRO: Yes Type of MDRO: VRE, MRSA Allergies Coded Allergies: No Known Allergies (Verified , 02/24/17) Home Medications Scheduled Acetaminophen Tab (Tylenol), 650 MG PO Q8 Amlodipine (Norvasc), 5 MG PO DAILY Apixaban (Eliquis), 2.5 MG PO BID Atorvastatin (Lipitor), 40 MG PO DAILY Calcium Carbonate-Cholecalcife (Calcium 600 + D 600-200 mg-Unit), 1 TAB PO BID Citalopram Hydrobromide (Celexa), 10 MG PO DAILY Clopidogrel Bisulfate (Plavix), 75 MG PO DAILY Cyanocobalamin (Cyanocobalamin), 1,000 MCG IM WK Dextromethorphan Hbr-Quinidine (Nuedexta), 1 CAP PO BID Docusate Sodium (Colace), 100 MG PO BID Furosemide (Lasix), 20 MG PO QAM Gabapentin (Neurontin), 300 MG PO TID Hydralazine Hcl (Apresoline), 75 MG PO QID Insulin Aspart (Novolog), 0 SC BID Insulin Glargine (Lantus), 10 UNITS SC HS Isosorbide Mononitrate (Isosorbide Mononitrate ER), 60 MG PO BID Levothyroxine Sodium (Levothyroxine Sodium), 1 TAB PO DAILY Linaclotide (Linzess), 145 MCG PO QAM Lisinopril (Zestril), 40 MG PO DAILY Magnesium Oxide (Mag-Ox), 400 MG PO BID Metoprolol Tartrate (Lopressor), 12.5 MG PO BID Multiple Vitamin (Multivitamin), 1 TABLET PO DAILY Potassium Chloride Microencaps (Potassium Chloride Er), 20 MEQ PO DAILY Sennosides (Sennosides), 17.2 MG PO BID Scheduled PRN Acetaminophen (Tylenol), 650 MG PO Q6 PRN for Pain Calcium Carbonate (Tums), 2 TABS PO Q6 PRN for Heartburn Lactulose (Chronulac), 15 ML PO DAILY PRN for Constipation Nitroglycerin (Nitrostat), 0.4 MG SL UD PRN for Chest Pain Ranitidine (Zantac), 150 MG PO Q12 PRN for Heartburn Review of Systems unobtainable due to patient's mental status Physical Exam Vital Signs Date Time Temp Pulse Resp B/P (MAP) Pulse Ox O2 Delivery O2 Flow Rate FiO2 02/24/17 12:07 70 16 137/63 (87) 95 Room Air 02/24/17 11:47 95 Room Air 02/24/17 10:15 36.5 77 18 201/109 (139) 97 Room Air 210/90 (130) 02/24/17 10:02 71 24 131/56 94 02/24/17 09:55 70 02/24/17 09:00 72 24 157/69 94 Room Air 02/24/17 07:43 78 28 208/92 94 Room Air 02/24/17 06:40 97 Room Air 02/24/17 06:40 97 Room Air 02/24/17 06:37 73 02/24/17 06:25 37.1 74 22 205/88 98 Room Air 02/24/17 06:25 97 Room Air General Appearance: no apparent distress Head: normocephalic Eyes: normal inspection ENT: + pertinent finding (dry mucous membranes, [place]) Neck: supple, no JVD Respiratory/Chest: lungs clear, normal breath sounds, no respiratory distress Cardiovascular: regular rate, rhythm, no edema, normal peripheral pulses Abdomen/GI: normal bowel sounds, non tender, soft Extremities/Musculoskelatal: normal inspection, no calf tenderness Neurologic/Psych: no motor/sensory deficits, alert, normal mood/affect, oriented x 3 Skin: normal color, warm/dry Diagnostics Laboratory Results Results Past 24 Hours Test 02/24/17 06:17 02/24/17 07:20 02/24/17 08:44 02/24/17 12:08 Range/Units White Blood Count 4.68 4.8-10.8 K/uL Red Blood Count 3.66 4.2-5.4 M/uL Hemoglobin 12.0 12.0-16.0 g/dL Hematocrit 36.0 37-47 % Mean Corpuscular Volume 98.4 80-100 fL Mean Corpuscular Hemoglobin 32.8 25-34 pg Mean Corpuscular Hemoglobin Concent 33.3 32-36 g/dl Platelet Count 172 130-400 K/uL Mean Platelet Volume 11.6 7.4-10.4 fL Neutrophils (%) (Auto) 39.4 % Lymphocytes (%) (Auto) 45.1 % Monocytes (%) (Auto) 10.3 % Eosinophils (%) (Auto) 4.1 % Basophils (%) (Auto) 0.9 % Neutrophils # (Auto) 1.85 1.4-6.5 K/uL Lymphocytes # (Auto) 2.11 1.2-3.4 K/uL Monocytes # (Auto) 0.48 0.11-0.59 K/uL Eosinophils # (Auto) 0.19 0-0.5 K/uL Basophils # (Auto) 0.04 0-0.2 K/uL RDW Standard Deviation 52.0 36.4-46.3 fL RDW Coefficient of Variation 14.5 11.5-14.5 % Immature Granulocyte % (Auto) 0.2 % Immature Granulocyte # (Auto) 0.01 0.00-0.02 K/uL Sodium Level 144 136-145 mmol/L Potassium Level 4.5 3.5-5.1 mmol/L Chloride Level 109 98-107 mmol/L Carbon Dioxide Level 27 21-32 mmol/L Anion Gap 8.0 3-11 mmol/L Blood Urea Nitrogen 23 7-18 mg/dl Creatinine 0.89 0.60-1.20 mg/dl Estimated GFR () 68.0 Estimated GFR (Non- 58.7 BUN/Creatinine Ratio 26.3 10-20 Random Glucose 77 70-99 mg/dl Calcium Level 8.5 8.5-10.1 mg/dl Total Bilirubin 0.5 0.2-1 mg/dl Direct Bilirubin 0-0.2 mg/dl Aspartate Amino Transf (AST/SGOT) 21 15-37 U/L Alanine Aminotransferase (ALT/SGPT) 28 12-78 U/L Alkaline Phosphatase 66 45-117 U/L Total Creatine Kinase 85 26-192 U/L Creatine Kinase MB 1.5 0.5-3.6 ng/ml Creatine Kinase MB Ratio 1.8 0-3.0 Troponin I < 0.015 0-0.045 ng/ml Total Protein 7.2 6.4-8.2 gm/dl Albumin 3.5 3.4-5.0 gm/dl Lipase 87 73-393 U/L Chemistry Specimen Hemolysis Prothrombin Time 11.2 9.0-12.0 SECONDS Prothromb Time International Ratio 1.0 0.9-1.1 D-Dimer 300 0-500 ug/L FEU Bedside Troponin I < 0.030 0-0.045 ng/ml Test 02/24/17 12:57 Range/Units Microbiology Results 02/24/17 MRSA DNA Surveillance Screen, David Batch Pending Diagnostic Radiology CXR IMPRESSION: No acute process. Chronic change. Impression Assessment and Plan CHEST PAIN, HYPERTENSIVE URGENCY - admit to tele - patient presenting with chest pain - history limited due to patient's underlying mental status - initial BP in the ER 205/88 - initially improved after morphine, Zofran, Ativan, Lasix, and GI meds given in ER however love again and received hydralazine 10mg; BP now controlled - long standing history of hypertension with underlying renal artery stenosis - has been evaluated by vascular in the past however since BP was controlled, conservative management was pursued - initial troponin negative, EKG without acute ST changes - suspect chest pain is due to hypertensive urgency - continue to cycle cardiac enzymes, check resting echo - cardio consult, input appreciated - s/p ASA 324mg with EMS, will continue with 81mg daily - continue Plavix, statin, and home BP meds for now (amlodipine, furosemide, lisinopril, isosorbide, and metoprolol) PAROXYSMAL ATRIAL FIBRILLATION - currently in NSR - rate controlled on metoprolol and anticoagulated with Eliquis DM - hgb a1c 6.6 12/2016 - on Lantus + SSI BID at home - will continue basal + SSI HX TIA - continue Plavix HYPOTHYROIDISM - continue levothyroxine PSEUDOBULBAR AFFECT - continue Nuedexta CHRONIC PAIN - continue gabapentin and routine Tylenol DVT PROPHYLAXIS - on Eliquis CODE STATUS - Patient is a full code as per my discussion with the staff at [facility] DISPO - The patient will be placed as observation status for now until further work up is complete. - expect d/c back to [facility] once medically stable ATTENDING ADDENDUM Pt was seen and examined with son at bedside. Agreed with Leisa WOLFF assessment and plan. 86 year old female with PMH of P. Afib, hypothyroidism, chronic pain, resides at [facility] home presents to the ER with chest pain. Pt chest pain started about 1:00 am.Chest pain radiated into her neck and and left arm and associated with shortness of breath, diaphoresis, and nausea. Pt received 3 nitro in the ER with no relief. Morphine and lorazepam was given as well in the ER. Right now pt is chest pain free. General- no acute distress Head- atraumatic Eyes- PERRL, EOMI ENT- oropharynx clear Neck- supple Lungs- clear to auscultation Heart- regular rhythm Abdomen- normal bowel sounds Extremities- no calf tenderness A/P CHEST PAIN Need to r/o ACS troponin negative EKG showed no ischemic changes follow serial Cardiac marker will get an echo continue plavix, aspirin, statin and metoprolol cardiology consult monitor pt on tele HTN URGENCY on amlodipine, furosemide, lisinopril, isosorbide, and metoprolol Improved Monitor BP will add hydralazine prn Lab, EKG, Imaging reviewed Please refer to Leisa WOLFF documentation for other problems Fannie Bradshaw MD Advanced Directives Existing Living Will: Yes Existing Power of Manager Of Applications Development: Yes Resuscitation Status DO NOT RESUSCITATE VTE Prophylaxis VTE Risk Assessment Done? Y/N: Yes Risk Level: Moderate Given or contraindicated: Other Anticoagulation Additional Copies To [facility] Leonel Bowens M.D.
[2017-02-24] MEDS: GABAPENTIN 300 MG CAP PO SCH ×2 (14:06→21:03)
[2017-02-24] MEDS: CLOPIDOGREL BISULFATE 75 MG TAB PO SCH (14:07)
[2017-02-24] MEDS: ISOSORBIDE MONONITRATE 60 MG TABCR PO SCH ×2 (14:07→21:03)
[2017-02-24] MEDS: METOPROLOL TARTRATE 25 MG TAB PO SCH ×2 (14:08→21:05)
[2017-02-24] MEDS: LISINOPRIL 40 MG TAB PO SCH (14:08)
--- NOTE | 2017-02-24 14:57 | ECHOCARDIOGRAM REPORT ---
*NOTICE TO RECEIVING [employer] This information is strictly Confidential and protected under [place] law. [place] law prohibits you from making any further disclosure of this information unless further disclosure is expressly permitted by the written consent of the person to whom it pertains or is authorized by law. A general authorization for the release of medical or other information is not sufficient for this purpose. Hospital accepts no responsibility if the information is made available to any other person, INCLUDING THE PATIENT. Interpretation Summary * Name: DIANA GLYNN Study Date: 02/24/2017 12:44 PM BP: 137/63 mmHg * Patient Location: C.2E\S\E205\S\1 HR: 64 * : 1930 (M/d/yyyy) Gender: Female * Age: 86 yrs Ethnicity: [place] Weight: 177 lb * Ordering Physician: Leisa Murphy * Referring Physician: María Shepard * Performed By: Joanna Valdovinos [facility] / Elicia Franks * * Reason For Study: CHEST PAIN * -- Conclusions -- * 1. Normal left ventricular size with hyperdynamic systolic function. EF > 70%. No regional wall motion abnormalities. Type I diastolic dysfunction. Severe concentric left ventricular hypertrophy. * 2. Sclerotic aortic valve without significant stenosis. Mild aortic regurgitation. * 3. Severe mitral annular calcification. Mild mitral regurgitation. * 4. Similar findings compared to prior study on 10/28/2016. Procedure Details * A complete two-dimensional transthoracic echocardiogram was performed (2D, M-mode, Doppler and color flow Doppler). * A saline contrast injection was performed to assess for cardiac shunting. * The injection was performed through an intravenous line in the left arm. * The attending nurse who injected the saline contrast was JAKE ALEMAN RN. * A total of 20 cc of agitated saline was given. Left Ventricle * Normal left ventricular size with hyperdynamic systolic function. EF > 70%. No regional wall motion abnormalities. Type I diastolic dysfunction. Severe concentric left ventricular hypertrophy. Right Ventricle * The right ventricle is normal in size and function. * The right ventricular systolic function is normal as assessed by tricuspid annular plane systolic excursion (TAPSE) (normal >1.5 cm). Atria * The left atrium is moderately dilated. * Borderline right atrial enlargement. * There is no evidence of atrial septal defect, but resolution does not allow assessment for a patent foramen ovale. * No definite PFO. Minimal agitated saline noted > 10 beats following injection, which could suggest PFO vs pulmonary shunt. Mitral Valve * There is severe mitral annular calcification. * The mitral valve leaflets appear thickened, but open well. * No significant mitral stenosis. * There is mild mitral regurgitation. Tricuspid Valve * The tricuspid valve is not well visualized, but is grossly normal. * There is no tricuspid stenosis. * There is trace tricuspid regurgitation. Aortic Valve * The aortic valve is trileaflet. * Sclerotic aortic valve without significant stenosis. * Mild aortic regurgitation. Pulmonic Valve * The pulmonary valve is inadequately visualized, but the Doppler data is adequate for interpretation. * There is no pulmonic valvular stenosis. * There is no significant pulmonary regurgitation. Great Vessels * The aortic root is normal size. * Normal pulmonary venous flow pattern. Pericardium/Pleural * There is no pericardial effusion. Great Vessels * IVC not well visualized. MMode 2D Measurements and Calculations IVSd 1.7 cm IVSs 2.1 cm LVIDd 4.2 cm LVIDs 2.2 cm LVPWd 1.5 cm LVPWs 2.2 cm IVS/LVPW 1.1 FS 48.1 % EDV(Teich) 76.9 ml ESV(Teich) 15.5 ml EF(Teich) 79.9 % EDV(cubed) 72.1 ml ESV(cubed) 10.1 ml EF(cubed) 86.0 % % IVS thick 25.5 % % LVPW thick 42.1 % LV mass(C)d 274.8 grams LV mass(C)s 215.6 grams SV(Teich) 61.5 ml SV(cubed) 62.1 ml Ao root diam 3.6 cm Ao root area 10.2 cm\S\2 ACS 1.0 cm LVOT diam 2.2 cm LVOT area 3.7 cm\S\2 LVAd ap4 25.4 cm\S\2 LVLd ap4 7.6 cm EDV(MOD-sp4) 67.0 ml EDV(sp4-el) 71.8 ml LVAs ap4 10.6 cm\S\2 LVLs ap4 6.0 cm ESV(MOD-sp4) 17.7 ml ESV(sp4-el) 15.9 ml EF(MOD-sp4) 73.6 % EF(sp4-el) 77.8 % LVAd ap2 28.8 cm\S\2 LVLd ap2 7.6 cm EDV(MOD-sp2) 91.6 ml EDV(sp2-el) 93.4 ml LVAs ap2 11.2 cm\S\2 LVLs ap2 6.5 cm ESV(MOD-sp2) 20.1 ml ESV(sp2-el) 16.3 ml EF(MOD-sp2) 78.1 % EF(sp2-el) 82.5 % LVLd %diff -0.93 % EDV(MOD-bp) 79.2 ml LVLs %diff 7.3 % ESV(MOD-bp) 19.1 ml EF(MOD-bp) 75.9 % SV(MOD-sp4) 49.3 ml SV(MOD-sp2) 71.5 ml SV(MOD-bp) 60.1 ml SV(sp4-el) 55.9 ml SV(sp2-el) 77.1 ml Doppler Measurements and Calculations MV E max stephanie 102.3 cm/sec MV A max stephanie 138.7 cm/sec MV E/A 0.74 MV V2 max 135.0 cm/sec MV max PG 7.3 mmHg MV V2 mean 83.7 cm/sec MV mean PG 3.1 mmHg MV V2 VTI 32.1 cm MVA(VTI) 3.4 cm\S\2 MV P1/2t max stephanie 113.2 cm/sec MV P1/2t 89.6 msec MVA(P1/2t) 2.5 cm\S\2 MV dec slope 370.3 cm/sec\S\2 MV dec time 0.26 sec Ao V2 max 194.9 cm/sec Ao max PG 15.3 mmHg Ao max PG (full) 8.8 mmHg Ao V2 mean 139.6 cm/sec Ao mean PG 8.8 mmHg Ao mean PG (full) 4.9 mmHg Ao V2 VTI 42.3 cm AXEL(I,A) 2.6 cm\S\2 AXEL(I,D) 2.6 cm\S\2 AXEL(V,A) 2.4 cm\S\2 AXEL(V,D) 2.4 cm\S\2 AI max stephanie 328.5 cm/sec AI max PG 43.3 mmHg AI dec slope 192.7 cm/sec\S\2 AI P1/2t 499.3 msec LV V1 max PG 6.5 mmHg LV V1 mean PG 4.0 mmHg LV V1 max 127.4 cm/sec LV V1 mean 94.0 cm/sec LV V1 VTI 30.1 cm SV(Ao) 432.1 ml SV(LVOT) 110.2 ml TV E max stephanie 55.5 cm/sec PA V2 max 63.6 cm/sec PA max PG 1.6 mmHg
--- NOTE | 2017-02-24 16:29 | Progress Note ---
Progress Note Date of Service Feb 24, 2017. Progress Note Case discussed with Dr. Montez. Per his discussion with the patient's son, patient is to be DNR status. Code status updated.
[2017-02-24] MEDS: INSULIN ASPART 100 UNITS/ML 3 ML PEN SC SCH ×2 (17:17→20:58)
[2017-02-24] MEDS: APIXABAN 2.5 MG TAB PO SCH (21:02)
[2017-02-24] MEDS: MAGNESIUM OXIDE 400 MG TAB PO SCH (21:02)
[2017-02-24] MEDS: CALCIUM 600MG + VIT D 400 IU TAB PO SCH (21:03)
[2017-02-24] MEDS: SENNA 8.6 MG TAB PO SCH (21:03)
[2017-02-24] MEDS: DOCUSATE SODIUM 100 MG CAP PO SCH (21:03)
[2017-02-24] MEDS: INSULIN GLARGINE SOLOSTAR 100 UNITS/ML 3 ML PEN SC SCH (21:07)
[2017-02-25] VITALS (8 sets, daily range): BP systolic 127–186; BP diastolic 53–91; PULSE 54–75; TEMP 36.4–36.9; O2SAT 93–100; Ht 165.1 cm; Wt 74.3 kg
--- NOTE | 2017-02-25 03:29 | CARDIOLOGY CONSULTATION ---
DATE OF CONSULTATION: 02/24/2017 TIME: 15:47 p.m. CONSULTING CLINICIAN: MARIELLA López and Fannie Bradshaw MD REASON FOR CONSULTATION: Chest pain. HISTORY OF PRESENT ILLNESS: Ms. Stevens is a pleasant 86-year-old female with a history significant for dementia, hypertension, renal artery stenosis, type 2 diabetes, dyslipidemia, and as per records, paroxysmal atrial fibrillation, pulmonary embolism, and possibly coronary artery disease. She presented to [facility] today with chest pain and hypertension. In regards to some of her history, CAD is mentioned in the records. The patient is a very poor historian and therefore, does not know her medical problems. Her son, Sherif was contacted via telephone. He also does not know much of her medical history. He does not recall her ever having a cardiac catheterization. In regards to paroxysmal atrial fibrillation, it is once again charted; however, there is no other detail available at the time of today's note. There are 24 ECGs available in the hospital system, all of which were personally reviewed and atrial fibrillation was not present on any of the ECGs. When asked about anticoagulation, her son recalls blood clots as being the indication and upon review of imaging, pulmonary emboli were noted in the right lower lobe pulmonary artery on 06/05/2013 CT angiogram. That is the only indication of anticoagulation that he is aware. He also noted that he is not aware of her day to day symptoms, but was aware that she was admitted for chest pain today. He did visit her earlier today in the hospital. According to records, at approximately 1:00 a.m. overnight, she had an episode of chest discomfort. She was apparently given 3 nitroglycerin tablets and fell back asleep. Before waking up at 4:00, was once again complaining of chest discomfort. She was therefore brought to the Emergency Department and found to be hypertensive and remained significantly hypertensive with systolic blood pressures over 200s at times. She was eventually given hydralazine IV and her blood pressure improved significantly down to 137/63 mmHg. The nursing staff also noted that she did not receive her morning medications due to the fact that she was brought to the Emergency Department at the time her blood pressure medications were due. She complained of left-sided chest discomfort while I was in the room once she was specifically asked about chest discomfort. She states that it has been intermittently occurring. She cannot remember any other details of it. She denies shortness of breath or palpitations. She denied any other pain until examination noted some tenderness in her abdomen and she states that she does have abdominal pain. According to a consult done by Dr. Rivera on 02/11/2016, she also had abdominal pain at that time as well and he was consulted for chest discomfort and was found to be significantly hypertensive. Other review of systems are unobtainable at this time due to her poor mental status. With her history of renal artery stenosis, she has been evaluated by Dr. Ventura of vascular surgery. He stated that if her blood pressure becomes difficult to control, he could pursue revascularization. This was discussed with her son, Sherif on the phone and he states that he and his brother would prefer medical therapy only and to avoid invasive procedures or surgeries. He also stated that he would not like his mother to be resuscitated if necessary, but rather be DNR/DNI status. REVIEW OF SYSTEMS: As above and otherwise unobtainable due to the patient's mental status. PAST MEDICAL HISTORY: 1. Hypertension. 2. Renal artery stenosis. 3. Dyslipidemia. 4. Type 2 diabetes. 5. Chest pain. 6. Hypokalemia. 7. Hemorrhoids. 8. Dementia. 9. GERD. 10. Polyneuropathy. 11. Pulmonary embolus in 2012. 12. Reported history of coronary artery disease; however, it does not appear as though she has had a cardiac catheterization. 13. Hypothyroidism. 14. Depression. 15. TIA. 16. A reported history of paroxysmal atrial fibrillation; however, her son does not recall ever hearing that diagnosis, but does recall her being placed on anticoagulation for pulmonary emboli. HOME MEDICATIONS: Include amlodipine 5 mg daily, Eliquis 2.5 mg p.o. b.i.d., Lipitor 40 mg daily, Plavix 75 mg daily, citalopram 10 mg daily, Lasix 20 mg p.o. daily, Neurontin 300 mg p.o. t.i.d., hydralazine 75 mg p.o. q.i.d., isosorbide mononitrate 60 mg p.o. b.i.d., lisinopril 40 mg daily, magnesium oxide 400 mg p.o. b.i.d., and metoprolol tartrate 12.5 mg p.o. b.i.d. Please see full list. ALLERGIES: No known drug allergies. SOCIAL HISTORY: Denies tobacco abuse. She resides at [facility]. She has 2 sons, Brayan and Sherif. She is a . FAMILY HISTORY: Unobtainable from the patient due to confusion/dementia. PHYSICAL EXAMINATION: VITAL SIGNS: Temperature 36.5 degrees, heart rate 70 beats per minute, respiratory rate 16, blood pressure 137/63 mmHg, and oxygen saturation 95% on room air. GENERAL: In no acute distress. She was alert to place and name. She did not know her date. She did not know the year. HEENT: Anicteric sclerae. NECK: No appreciable JVD. Bilateral carotid bruits versus radiation of cardiac murmur. Normal carotid upstrokes bilaterally. CARDIAC EXAMINATION: PMI was not displaced. There was no ventricular heave. Regular, normal S1 and S2. 2/6 early peaking systolic ejection murmur best heard at the right upper sternal border. No rubs or gallops. LUNGS: Clear to auscultation bilaterally without wheezes, rales or rhonchi. ABDOMEN: Soft and nondistended. There is epigastric tenderness, but no rebound tenderness. Normoactive bowel sounds. EXTREMITIES: No cyanosis or pitting edema. 1+ dorsalis pedis pulses bilaterally. 2+ radial pulses bilaterally. PSYCHIATRIC: Affect appears appropriate. CHEST: Tender to palpation in the left chest, reproducing her chest pain, if her history is accurate. ECGs personally reviewed as noted. 24 ECGs were reviewed, none of which were atrial fibrillation. ECG today on 02/24/2017 at 08:27 a.m., sinus rhythm with short MN, otherwise normal ECG. LABORATORY DATA: White blood cell count 4.68, hemoglobin 12, and platelets 172. Sodium 144, potassium 4.5, BUN 23, and creatinine 0.89. Troponin 0.016, CK-MB 1.4, and albumin 3.5. INR 1. D-dimer 300. Chest x-ray report reviewed. No acute process per radiology. Echocardiogram images were personally reviewed. Hyperdynamic LV systolic function. Normal wall motion. Type 1 diastolic dysfunction. Severe concentric left ventricular hypertrophy. Sclerotic aortic valve with mild AI. No significant aortic stenosis. No significant mitral stenosis. Mild mitral regurgitation. ASSESSMENT AND PLAN: 1. Chest pain: Difficult to know the etiology of chest pain at this time, given her poor history. ECG did not demonstrate dynamic changes or concern for ischemia. Her LV systolic function is hyperdynamic, which is stable. Could be musculoskeletal as she does complain of reproducible tenderness when palpated in that area of her left chest. Recommend serial troponin levels. Hypertensive urgency could also cause her chest discomfort, which is being addressed by primary service. 2. Hypertensive urgency/hypertension: Her chest pain could be related to severe hypertension. She noted significant improvement with hydralazine. She is going to receive her home medications shortly as per nursing staff. Amlodipine can be further titrated. Hydralazine can be further titrated for her outpatient regimen as well. If those measures do not improve her blood pressure to an acceptable range, carvedilol could be used in place of metoprolol to hopefully better control blood pressure. 3. Renal artery stenosis: Her son, Sherif, states that he prefers medical therapy. If blood pressure is not acceptable in the future, could consider revisiting vascular options; however, medical therapy is wished for by family members, which seems to be very reasonable, given her demented state. 4. Coronary artery disease: She carries a history of coronary artery disease; however, details of this are not known. She has not had a cardiac catheterization as far as her son knows. Can continue antiplatelet therapy, high intensity statin therapy and beta doroteo. Her symptoms are not as severely anginal symptoms as noted above. 5. Paroxysmal atrial fibrillation: It is not clear the details of her atrial fibrillation or if she truly has atrial fibrillation in a paroxysmal fashion. 24 ECGs in this hospital system were personally reviewed, dating back to 06/17/2006 and there was no evidence of atrial fibrillation. There was also no evidence of atrial fibrillation in her outpatient chart by Dr. Miranda when he last saw her in the outpatient cardiology office. It appears as though she takes anticoagulation for pulmonary embolus in the past. If she truly does have paroxysmal atrial fibrillation, can continue anticoagulation for this indication as well. She currently is in sinus. 6. Disposition: Plan of care has been discussed with Leisa Murphy of the [facility] service. Greater than 40 minutes spent reviewing records, at the patient's bedside, speaking with the patient's family member via telephone, and coordinating care with primary service.
[2017-02-25] MEDS: LEVOTHYROXINE 175 MCG TAB PO SCH (06:21)
[2017-02-25] MEDS: INSULIN ASPART 100 UNITS/ML 3 ML PEN SC SCH ×4 (07:00→20:55)
[2017-02-25 07:48] LABS: HEMATOCRIT 33.5 % (37-47); MEAN CELL VOLUME 100.9 fL (80-100); MEAN CORPUSCULAR HEMOGLOBIN 33.4 pg (25-34); MEAN CORPUSCULAR HGB CONC 33.1 g/dl (32-36); MEAN PLATELET VOLUME 11.6 fL (7.4-10.4); PLATELET COUNT 145 K/uL (130-400); RED BLOOD COUNT 3.32 M/uL (4.2-5.4); WHITE BLOOD COUNT 6.26 K/uL (4.8-10.8)
--- NOTE | 2017-02-25 08:09 | Progress Note ---
Internal Med Progress Note Date of Service: Feb 25, 2017. Provider Documentation: SUBJECTIVE: baseline dementia , able to answer questions says does not have chest pain , SOB improved , finished breakfast , offers no complain OBJECTIVE: Vital Signs-as noted below Exam: General-elderly female , no apparent sign of distress Eyes-sclera non icteric Neck-NAD Lungs-CTA ,no wheeze or rales Heart-regular S1/S2 Abdomen-soft, non tender Extremities-no lower ext edema, no rash Neuro-baseline dementia ,no focal neurological deficit Lab data as noted below. ASSESSMENT & PLAN: 1. Chest pain: possible due to hypertensive urgency symptom has resolved appreciate cardiology eval no evidence of ACS ECHO shows no evidence of wall motion abnormality pt will be continued with her out pt cardiac meds -Aspirin , Plavix , statin , Imdur, no beta doroteo Lopressor 12.5 mg BID unable to titrate up due to baseline bradycardia 2. Hypertensive urgency/hypertension: has underlying renal artery stenosis medical management as per family Possible caused transient episode of Hypertensive urgency pt is on multiple antihypertensive agents on Hydralazine Norvasc dose increased to 10 mg PO daily today appreciate cardiology eval recommend cont to titrate Hydralazine If blood pressure to an acceptable range, carvedilol could be used in place of metoprolol to hopefully better control blood pressure. HX OF AFIB: appreciate cardiology input not sure fo the DX per cardiology 24 ECGs in this hospital system reviewed, dating back to 06/17/2006 and there was no evidence of atrial fibrillation. - no evidence of atrial fibrillation in her outpatient chart by Dr. Miranda when he last saw her in the outpatient cardiology office. -mentions of pt taking anticoagulation for pulmonary embolus in the past. -if Afib documented while this admission Eliquis should be continued -cont to monitor pt in Tele DVT PROPHYLAXIS on Eliquis DISPOSITION Resident at [facility] PT/OT eval requested return to [facility] when medically stable Vital Signs: Date Time Temp Pulse Resp B/P (MAP) Pulse Ox O2 Delivery O2 Flow Rate FiO2 02/25/17 07:05 36.5 69 18 186/79 (114) 94 Room Air 02/25/17 04:33 36.9 70 22 180/53 (95) 98 Room Air 02/25/17 04:30 98 Room Air 02/25/17 00:00 95 Room Air 02/24/17 23:47 36.8 66 20 138/59 (85) 95 Room Air 02/24/17 20:00 94 Room Air 02/24/17 19:32 36.4 62 18 128/69 (88) 94 Nasal Cannula 02/24/17 15:45 Room Air 02/24/17 14:58 36.5 69 20 163/74 (103) 96 Room Air 02/24/17 12:07 70 16 137/63 (87) 95 Room Air 02/24/17 12:00 Room Air 02/24/17 11:47 95 Room Air 02/24/17 10:15 36.5 77 18 201/109 (139) 97 Room Air 210/90 (130) 02/24/17 10:02 71 24 131/56 94 02/24/17 09:55 70 02/24/17 09:00 72 24 157/69 94 Room Air Lab Results: Results Past 24 Hours Test 02/24/17 08:44 02/24/17 12:08 02/24/17 12:57 02/24/17 16:23 Range/Units Bedside Troponin I < 0.030 0-0.045 ng/ml Creatine Kinase MB Ratio 0-3.0 Creatine Kinase MB 1.4 0.5-3.6 ng/ml Troponin I 0.016 0-0.045 ng/ml Bedside Glucose 77 70-90 mg/dl Test 02/24/17 18:05 02/24/17 18:08 02/24/17 20:22 02/25/17 06:50 Range/Units Creatine Kinase MB 1.2 0.5-3.6 ng/ml Troponin I 0.017 0-0.045 ng/ml Creatine Kinase MB Ratio 0-3.0 Bedside Glucose 103 66 70-90 mg/dl Test 02/25/17 07:10 02/25/17 07:39 Range/Units White Blood Count 6.26 4.8-10.8 K/uL Red Blood Count 3.32 4.2-5.4 M/uL Hemoglobin 11.1 12.0-16.0 g/dL Hematocrit 33.5 37-47 % Mean Corpuscular Volume 100.9 80-100 fL Mean Corpuscular Hemoglobin 33.4 25-34 pg Mean Corpuscular Hemoglobin Concent 33.1 32-36 g/dl RDW Standard Deviation 53.8 36.4-46.3 fL RDW Coefficient of Variation 14.6 11.5-14.5 % Platelet Count 145 130-400 K/uL Mean Platelet Volume 11.6 7.4-10.4 fL Bedside Glucose 92 70-90 mg/dl
[2017-02-25 08:16] LABS: CREATININE 1.1 mg/dl (0.60-1.20)
[2017-02-25 08:17] LABS: BUN/CREATININE RATIO 21.6 (10-20)
[2017-02-25] MEDS: CLOPIDOGREL BISULFATE 75 MG TAB PO SCH (08:36)
[2017-02-25] MEDS: GABAPENTIN 300 MG CAP PO SCH ×3 (08:36→20:59)
[2017-02-25] MEDS: CALCIUM 600MG + VIT D 400 IU TAB PO SCH ×2 (08:37→20:59)
[2017-02-25] MEDS: CITALOPRAM 20 MG TAB PO SCH (08:37)
[2017-02-25] MEDS: ATORVASTATIN 40 MG TAB PO SCH (08:37)
[2017-02-25] MEDS: LISINOPRIL 40 MG TAB PO SCH (08:38)
[2017-02-25] MEDS: ISOSORBIDE MONONITRATE 60 MG TABCR PO SCH ×2 (08:38→20:59)
[2017-02-25] MEDS: POTASSIUM CHLORIDE 20 MEQ TABCR PO SCH (08:40)
[2017-02-25] MEDS: FUROSEMIDE 20 MG TAB PO SCH (08:40)
[2017-02-25] MEDS: MULTIVITAMIN TAB PO SCH (08:40)
[2017-02-25] MEDS: DOCUSATE SODIUM 100 MG CAP PO SCH ×2 (08:41→20:59)
[2017-02-25] MEDS: APIXABAN 2.5 MG TAB PO SCH ×2 (08:41→20:59)
[2017-02-25] MEDS: MAGNESIUM OXIDE 400 MG TAB PO SCH ×2 (08:41→20:59)
[2017-02-25] MEDS: SENNA 8.6 MG TAB PO SCH ×2 (08:41→20:59)
[2017-02-25] MEDS: METOPROLOL TARTRATE 25 MG TAB PO SCH ×2 (08:42→21:00)
[2017-02-25 08:49] LABS: CALCIUM 8.5 mg/dl (8.5-10.1)
[2017-02-25] MEDS ORDERED: AMLODIPINE BESYLATE 5 MG TAB PO SCH (09:00)
[2017-02-25] MEDS ORDERED: ASPIRIN 81 MG ECTAB PO SCH (09:00)
--- NOTE | 2017-02-25 10:29 | CARDIOLOGY PROGRESS NOTE ---
DATE: 02/25/2017 TIME: 09:59 a.m. SUBJECTIVE: She knows that she is in a hospital, but has no idea why she came to the hospital. When asked if she has any complaints today, she says no. She denies pain, shortness of breath, palpitations, or syncope. OBJECTIVE: VITAL SIGNS: Temperature 36.5 degrees, heart rate 69 beats per minute, respiratory rate 18, and blood pressure was 186/79 mmHg; however, she has had episodes of normal blood pressure since yesterday afternoon. Oxygen saturation 94% on room air. Weight 76.8 kg. GENERAL: No acute distress. She is alert and oriented to place and self. NECK: No JVD. CARDIAC EXAM: No ventricular heave, regular, normal S1 and S2, 2/6 early peaking systolic ejection murmur best heard at the right upper sternal border. No rubs or gallops. LUNGS: Clear to auscultation bilaterally without wheezes, rales or rhonchi. ABDOMEN: Soft, nontender, and nondistended. Normoactive bowel sounds. EXTREMITIES: No cyanosis or edema. PSYCHIATRIC: Affect appears appropriate. MEDICATIONS: Amlodipine was increased to 10 mg today, aspirin 81 mg, Eliquis 2.5 mg p.o. b.i.d., Plavix 75 mg daily, Lasix 20 mg daily, hydralazine 75 mg p.o. q.i.d., isosorbide mononitrate 60 mg b.i.d., lisinopril 40 mg daily, metoprolol tartrate 12.5 mg p.o. b.i.d., and potassium chloride 20 mEq daily. Telemetry personally reviewed. No arrhythmia. She has sinus rhythm with PACs. Oftentimes, she will have a sinus complex followed by 2 PACs. ECG on 02/25/2017 at 06:42 a.m. personally reviewed. Sinus rhythm with PACs. LABORATORY DATA: White blood cell count 6.26, hemoglobin 11.1, and platelets 145. Sodium 143, potassium 4, BUN 24, creatinine 1.1, and glucose 92. Troponin unremarkable with a peak troponin of 0.017. ASSESSMENT AND PLAN: 1. Chest pain: No ECG changes, no wall motion abnormalities on echo, and unremarkable cardiac biomarkers. Could have been secondary to musculoskeletal pain due to some tenderness upon palpation. Could also be due to severe hypertension. No ischemic evaluation recommended at this time. 2. Hypertensive urgency/hypertension: Blood pressure has improved, but continues to be elevated at times. Amlodipine was increased by primary service today to 10 mg daily. Hydralazine can be further titrated to 100 mg q.i.d. if necessary. If these measures do not improve her blood pressure to the acceptable level, would then consider carvedilol in place of metoprolol. 3. Renal artery stenosis: Her son, Sherif, stated that they wish for medical therapy only at this time. She has been seen by Dr. Ventura in the past. Hopefully, blood pressure can be controlled. 4. Coronary artery disease: Details of this diagnosis are not known. No definite angina. She was taking Plavix as an outpatient, but is currently on dual antiplatelet therapy. If she is going to be continued on Eliquis, would recommend discontinuation of one of her antiplatelet agents. At this time, aspirin will be discontinued as she takes Plavix chronically. Can continue high intensity statin therapy. 5. Paroxysmal atrial fibrillation: Details of this diagnosis are not known. She has 24 ECGs in this hospital, none of which demonstrate atrial fibrillation. It was also not part of her outpatient chart when she last saw Dr. Miranda in the cardiology office. Her son is also not aware of the diagnosis, but admits that he does not know her past medical history well. She is on Eliquis. Her son believes it is secondary to pulmonary emboli in the past. 6. Disposition: Please call for any further questions or concerns. No further cardiac testing recommended at this time as an inpatient.
--- NOTE | 2017-02-25 10:36 | Pharmacy Progress Note ---
Glycemic Control Intl Consult Date of Service Feb 25, 2017. Scope Glycemic Pharmacist consulted by MARIELLA Saleh on 02/24/17 for glycemic control and to write orders per [facility] inpatient glycemic control protocol. Objective Weight (Kilograms): 76.800 Accuchecks BSG (last 24hrs): Test 02/24/17 16:23 02/24/17 20:22 02/25/17 06:50 02/25/17 07:10 Bedside Glucose 77 mg/dl (70-90) 103 mg/dl (70-90) 66 mg/dl (70-90) Random Glucose 76 mg/dl (70-99) Test 02/25/17 07:39 Bedside Glucose 92 mg/dl (70-90) Laboratory Data (last 24hrs) Test 02/25/17 07:10 Anion Gap 9.0 mmol/L BUN/Creatinine Ratio 21.6 Blood Urea Nitrogen 24 mg/dl Creatinine 1.10 mg/dl Potassium Level 4.0 mmol/L Sodium Level 143 mmol/L White Blood Count 6.26 K/uL Recent Pertinent Medications Outpatient Anti-diabetic Regimen: * Lantus 10 units QHS * Novolog BID, per sliding scale * 6-16 units for BSGs > 150 * A1c = 6.6 % (12/24/16) Assessment & Plan ASSESSMENT: * Patient was admitted yesterday afternoon with chest pain, hypertensive urgency. Patient is a resident at [facility]. * Patient is known to pharmacy glycemic management service from past admissions. * Generally requires very little insulin per day during admission (<15 units per day). * Lantus initiated at a reduced dose last evening, as BSG on admission was 77mg/ dL. * Novolog parameters initiated conservatively last evening, and further loosened this morning per provider. * ADA & AACE recommend a goal blood sugar range 140-180 mg/dl for the majority of critically ill & non-critically ill patients. However, more stringent targets may be selected in individual cases. PLAN FOR INPATIENT GLYCEMIC CONTROL: * Basal insulin with LANTUS SQ qPM * Give 4 units if BSG less than 140mg/dL * Give 8 units if BSG is 140mg/dL or greater * will continue to adjust as needed * Correctional Insulin with NOVOLOG per scale ACHS or Q6hrs while NPO * Goal Range: Low 140 mg/dL - High 180 mg/dL * Correction Factor: 50 mg/dL/unit * Nutritional / Prandial insulin per carb ratio of 1 unit per 30 grams CHO consumed DISCHARGE PLANNING: * Recent A1c (6.6%) indicates that patient may have too stringent glycemic control as an outpatient (for an 86yo with multiple co-morbidities). An acceptable A1c for this patient might be around 8%. * Might consider decreasing Lantus dose on discharge, and/or adjusting her sliding scale. * Please note that the plan above was derived based on current level of insulin resistance and hospital stress. These recommendations are appropriate for inpatient admission only. Plan of care upon discharge will need to be reassessed to avoid potential outpatient hypo/hyperglycemia. Thank you.
[2017-02-25] MEDS: AMLODIPINE BESYLATE 5 MG TAB PO SCH (11:41)
[2017-02-25] MEDS ORDERED: NRV5 PO (16:22)
--- NOTE | 2017-02-25 16:23 | Discharge Instructions ---
Discharge Instructions Date of Service Feb 25, 2017. Admission Reason for Admission: Chest Pain, Rule Out Acute Myocardial Infarction Discharge Discharge Diagnosis / Problem: HYPERTENSIVE URGENCY Discharge Goals Goal(s): Improve disease control, Diagnostic testing, Therapeutic intervention Activity Recommendations Activity Level: Assistance Required Therapies: Physical Therapy, Occupational Therapy . Additional Information Patient informed of condition: Yes Advance Directives: Yes DNR: Yes Level of Care: Skilled Communicable Disease: No Prognosis: Stable Mcclure Catheter: No Instructions / Follow-Up Instructions / Follow-Up HOSPITAL FOLLOW UP WITH PHYSICIAN AT [facility] ANTIHYPERTENSIVE RECOMMENDATION : NORVASC INCREASED TO 10 MG DAILY ( CAN BE CHANGED TO PM DOSE IS IF PT HAS PERSISTENT AM HYPERTENSION ) LISINOPRIL 40 MG AT BEDTIME DAILY ( TO PREVENT AM HYPERTENSIVE EVENT ) METOPROLOL CAN BE CHANGED TO COREG TO BETTER CONTROL OF BP HYDRALAZINE CAN BE TITRATED UP TO 100 MG QID IF NEEDED WILL NEED VITALS CHECK IN MORNING FOR A WEEK , TILL BP STABILIZES NO DOCUMENTATION FOUND TO SUPPORT PT 'S DIAGNOSIS OF PAROXYSMAL AFIB -PT HAS BEEN NORMAL SINUS IN HOSPITAL STAY -PRIOR 24 EKGS REVIEW IN [facility] SINCE 2005 -SHOWS NO AFIB -NO PRIOR HX OF PE OR DVT -GIVEN ADVANCED AGE /DEMENTIA , NO CLEAR DIAGNOSIS OF AFIB -HIGH RISK FOR BLEEDING COMPLICATION WITH ANTICOAGULATION -ELIQUIS IS DISCONTINUED Current Hospital Diet Patient's current hospital diet: AHA Diet (Heart Healthy), Diabetes Type 2 Diet Discharge Diet Recommended Diet: AHA Diet (Heart Healthy), Low Sodium Diet (2gm Na) Pending Studies Studies pending at discharge: no Laboratory Results Hemoglobin A1c Test 12/24/16 04:40 Range/Units Estimated Average Glucose 143 mg/dl Hemoglobin A1c 6.6 H 4.5-5.6 % Lipid Panel Test 12/24/16 04:40 Range/Units Triglycerides Level 79 0-150 mg/dl Cholesterol Level 79 0-200 mg/dl HDL Cholesterol 33 mg/dl Cholesterol/HDL Ratio 2.4 LDL Cholesterol, Calculated 30 mg/dl Medical Emergencies . Who to Call and When: Medical Emergencies: If at any time you feel your situation is an emergency, please call 911 immediately. . Non-Emergent Contact Non-Emergency issues call your: Primary Care Provider . . "Provider Documentation" section prepared by Shelly Recio. . Core Measure Problem Core Measures: None
[2017-02-25] MEDS: INSULIN GLARGINE SOLOSTAR 100 UNITS/ML 3 ML PEN SC SCH (21:02)
[2017-02-26 03:59] VITALS: BP 156/71; PULSE 57; TEMP 36.5; O2SAT 96
[2017-02-26] MEDS: LEVOTHYROXINE 175 MCG TAB PO SCH (06:08)
[2017-02-26 08:00] VITALS: O2SAT 97
[2017-02-26 08:03] VITALS: BP 195/85; PULSE 76; TEMP 36.5; O2SAT 98
[2017-02-26] MEDS: INSULIN ASPART 100 UNITS/ML 3 ML PEN SC SCH ×2 (08:17→11:57)
[2017-02-26] MEDS: CLOPIDOGREL BISULFATE 75 MG TAB PO SCH (08:20)
[2017-02-26] MEDS: GABAPENTIN 300 MG CAP PO SCH ×2 (08:20→13:14)
[2017-02-26] MEDS: LISINOPRIL 40 MG TAB PO SCH (08:20)
[2017-02-26] MEDS: SENNA 8.6 MG TAB PO SCH (08:20)
[2017-02-26] MEDS: METOPROLOL TARTRATE 25 MG TAB PO SCH (08:21)
[2017-02-26] MEDS: FUROSEMIDE 20 MG TAB PO SCH (08:21)
[2017-02-26] MEDS: MAGNESIUM OXIDE 400 MG TAB PO SCH (08:21)
[2017-02-26] MEDS: AMLODIPINE BESYLATE 5 MG TAB PO SCH (08:21)
[2017-02-26] MEDS: ATORVASTATIN 40 MG TAB PO SCH (08:21)
[2017-02-26] MEDS: MULTIVITAMIN TAB PO SCH (08:21)
[2017-02-26] MEDS: POTASSIUM CHLORIDE 20 MEQ TABCR PO SCH (08:21)
[2017-02-26] MEDS: CITALOPRAM 20 MG TAB PO SCH (08:22)
[2017-02-26] MEDS: APIXABAN 2.5 MG TAB PO SCH (08:22)
[2017-02-26] MEDS: CALCIUM 600MG + VIT D 400 IU TAB PO SCH (08:22)
[2017-02-26] MEDS: DOCUSATE SODIUM 100 MG CAP PO SCH (08:22)
[2017-02-26] MEDS: ISOSORBIDE MONONITRATE 60 MG TABCR PO SCH (08:22)
[2017-02-26] MEDS ORDERED: NRV5 PO ×3 (10:22→10:53)
[2017-02-26 10:39] VITALS: BP 195/85; PULSE 76; TEMP 36.5; O2SAT 98
--- NOTE | 2017-02-26 10:40 | Progress Note ---
Internal Med Progress Note Date of Service: Feb 26, 2017. 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 HTN SBP on 140-150's will be acceptable D/w Cardiology -pt will need antihypertensive to be added for HS schedule which will help to prevent AM hypertensive events Lisinopril 40 mg changed to HS will need BP check in AM at [facility] stable to be discharged back to [facility] today OBJECTIVE: Vital Signs-as noted below Exam: General-elderly female , no apparent sign of distress Eyes-sclera non icteric Neck-NAD Lungs-CTA ,no wheeze or rales Heart-regular S1/S2 Abdomen-soft, non tender Extremities-no lower ext edema, no rash Neuro-baseline dementia ,no focal neurological deficit Lab data as noted below. ASSESSMENT & PLAN: 1. Chest pain: no further symptom since admission due to hypertensive urgency appreciate cardiology eval no evidence of ACS ECHO shows no evidence of wall motion abnormality pt will be continued with her out pt cardiac meds -Aspirin , Plavix , statin , Imdur, no beta doroteo Lopressor 12.5 mg BID Lopressor can be changed to Coreg if BP remains persistency elevated 2. Hypertensive urgency/hypertension: has underlying renal artery stenosis medical management as per family Possible caused transient episode of Hypertensive urgency pt is on multiple antihypertensive agents on Hydralazine 75 mg QID Norvasc dose increased to 10 mg PO daily appreciate cardiology eval recommend cont to titrate Hydralazine can be increased up to 100 mg QID If blood pressure to an acceptable range, carvedilol could be used in place of metoprolol to hopefully better control blood pressure. Lisinopril dose changed to PM dose to prevent hypertensive event in AM HX OF AFIB: appreciate cardiology input not sure fo the DX per cardiology 24 ECGs in this hospital system reviewed, dating back to 06/17/2006 and there was no evidence of atrial fibrillation. - no evidence of atrial fibrillation in her outpatient chart by Dr. Miranda when he last saw her in the outpatient cardiology office. -called [facility] D/w Karin Potts PA-C -pt does not have any prior hx of PE or DVT hx of Afib in chart agreeable to s/c Brandonis is there is no concrete evidence of Afib risk of bleeding on anticoagulation out weights benefit in this scenario Esperanza D/josué DNR/DNI DISPOSITION Resident at [facility] return to [facility] TODAY Discharge planning /medication changed D/w [facility] Karin Potts PA-c Vital Signs: Date Time Temp Pulse Resp B/P (MAP) Pulse Ox O2 Delivery O2 Flow Rate FiO2 02/26/17 10:39 36.5 76 20 98 Room Air 02/26/17 08:03 36.5 76 20 195/85 (121) 98 Room Air 02/26/17 08:00 97 Room Air 02/26/17 04:00 Room Air 02/26/17 03:59 36.5 57 18 156/71 (99) 96 Room Air 02/25/17 23:59 Room Air 02/25/17 23:20 36.6 54 16 147/60 (89) 93 Room Air 02/25/17 20:00 Room Air 02/25/17 19:56 36.4 66 18 127/91 (103) 98 Room Air 02/25/17 16:00 Room Air 02/25/17 15:18 36.5 67 18 144/67 (92) 98 Room Air 02/25/17 12:00 Room Air 02/25/17 11:40 36.9 75 19 147/78 (101) 100 Room Air Lab Results: Results Past 24 Hours Test 02/25/17 11:27 02/25/17 16:30 02/25/17 19:55 02/26/17 07:13 Range/Units Bedside Glucose 100 119 160 88 70-90 mg/dl
--- NOTE | 2017-02-26 10:43 | CARDIOLOGY PROGRESS NOTE ---
DATE: 02/26/2017 DATE: 02/26/2017. TIME: 10:06 a.m. SUBJECTIVE: She has no specific complaints today. She denies chest pain, shortness of breath, palpitations, or syncope. She remains confused. OBJECTIVE: VITAL SIGNS: Temperature 36.5 degrees, heart rate 76 beats per minute, respiration rate 20, blood pressure has mostly been systolics 140s to 150s except for this morning just before her morning medications when she had 195/85 mmHg. Oxygen saturation 98% on room air, weight 74.3 kg. GENERAL: No acute distress. She is alert. She is oriented to self and place. NECK: No JVD. CARDIAC EXAMINATION: No ventricular heave. Regular with ectopy. Normal S1, S2, 2/6 early peaking systolic ejection murmur best heard at the right upper sternal border. No rubs or gallops. LUNGS: Clear to auscultation bilaterally. ABDOMEN: Mild tenderness in the central abdomen. No rebound tenderness. Soft with normoactive bowel sounds, no bruits noted. EXTREMITIES: No cyanosis or pitting edema. PSYCHIATRIC: Affect appears appropriate. MEDICATIONS: Include amlodipine 10 mg daily, Eliquis 2.5 mg p.o. b.i.d., atorvastatin 40 mg daily, Plavix 75 mg daily, Lasix 20 mg p.o. daily, hydralazine 75 mg p.o. q.i.d., isosorbide mononitrate 60 mg p.o. b.i.d., lisinopril 40 mg daily, metoprolol tartrate 12.5 mg p.o. b.i.d., potassium chloride 20 mEq daily. Telemetry personally reviewed. No arrhythmia. LABORATORY DATA: PVCs and atrial couplets noted. ECG from this morning personally reviewed demonstrating sinus rhythm with PACs, heart rate 58 beats per minute. ASSESSMENT AND PLAN: 1. Chest pain: No further chest pain. She had negative cardiac markers and no wall motion on echocardiogram. There were no dynamic ST/T-wave changes. No ischemic evaluation recommended. 2. Hypertensive urgency/hypertension: Blood pressure overall has improved significantly. Her initial blood pressure was elevated this morning before her medications but otherwise her blood pressure was much more acceptable yesterday throughout the day. Blood pressure improvement was noted after amlodipine was titrated to 10 mg daily. If she continues to have severe hypertension first thing in the morning, could consider giving her amlodipine in the evening as it appears as though her medications are wearing off first thing in the morning and then blood pressure improves when she received her meds. If her blood pressure remains elevated, would consider starting carvedilol in place of metoprolol. 3. Renal artery stenosis: Her son Sherif has stated that medical therapy is their wishes at this time. Dr. Ventura has evaluated in the past and did offer revascularization if blood pressure is not able to be controlled. 4. Coronary artery disease: The details of this diagnosis are not well known to me. She has not presented with definite angina. She is on antiplatelet therapy as an outpatient and this can be continued. Continue high intensity statin therapy. 5. Paroxysmal atrial fibrillation: It is not clear when she has ever had atrial fibrillation. Twenty-four ECGs in this hospital have been personally reviewed and demonstrated sinus rhythm. If she has not had atrial fibrillation documented anywhere else, then would discontinue anticoagulation for this indication. She did have a history of PE and has been on anticoagulation for that in the past, but without knowing when atrial fibrillation was apparently diagnosed, no changes have been made at this time to her anticoagulation. This has been discussed this morning with Dr. Recio. She has remained in sinus rhythm here. 6. Disposition: No further cardiology evaluation recommended at this time. Cardiology will officially sign off. Plan of care has been discussed with Dr. Recio of the primary hospitalist service.
--- NOTE | 2017-02-26 11:10 | Discharge Summary ---
Discharge Summary Date of Service Feb 26, 2017. Discharge Summary Admission Date: Feb 24, 2017 at 09:50 Discharge Date: Feb 26, 2017 Discharge Disposition: snf facility ([facility] ) Principal Diagnosis: HYPERTENSIVE URGENCY Procedures: ECHO : * 1. Normal left ventricular size with hyperdynamic systolic function. EF > 70% . No regional wall motion abnormalities. Type I diastolic dysfunction. Severe concentric left ventricular hypertrophy. * 2. Sclerotic aortic valve without significant stenosis. Mild aortic regurgitation. * 3. Severe mitral annular calcification. Mild mitral regurgitation. * 4. Similar findings compared to prior study on 10/28/2016. Consultations: CARDIOLOGY Medication Reconciliation New Medications: Amlodipine Besylate (Amlodipine Besylate) 5 Mg Tab 10 MG PO DAILY for 30 Days, #60 TAB Continued Medications: Acetaminophen (Tylenol) 325 Mg Tab 650 MG PO Q6 PRN for Pain MAX 3GM/24HR SEE ROUTINE ORDER Acetaminophen Tab (Tylenol) 325 Mg Tab 650 MG PO Q8, TAB NOT TO EXCEED 3 GM APAP/24HRS Atorvastatin (Lipitor) 40 Mg Tab 40 MG PO DAILY, TAB Calcium Carbonate (Tums) 500 Mg Chew 2 TABS PO Q6 PRN for Heartburn Calcium Carbonate-Cholecalcife (Calcium 600 + D 600-200 mg-Unit) 1 Tab Tab 1 TAB PO BID Citalopram Hydrobromide (Celexa) 10 Mg Tab 10 MG PO DAILY, TAB Clopidogrel Bisulfate (Plavix) 75 Mg Tab 75 MG PO DAILY, TAB Cyanocobalamin (Cyanocobalamin) 1,000 Mcg/Ml Inj 1000 MCG IM WK MONDAYS Dextromethorphan Hbr-Quinidine (Nuedexta) 1 Cap Cap 1 CAP PO BID Docusate Sodium (Colace) 100 Mg Cap 100 MG PO BID Furosemide (Lasix) 20 Mg Tab 20 MG PO QAM, TAB Gabapentin (Neurontin) 300 Mg Cap 300 MG PO TID, 0 Refills Hydralazine Hcl (Apresoline) 25 Mg Tab 75 MG PO QID for 30 Days, #360 TAB Insulin Aspart (Novolog) 100 Unit/ Inj 0 SC BID SLIDING SCALE 0-150 0 UNITS 151-200 6 UNITS 201-250 8 UNITS 251-300 10 UNITS 301-350 12 UNITS 351-400 14 UNITS 401-450 16 UNITS Insulin Glargine (Lantus) Vial 10 UNITS SC HS Isosorbide Mononitrate (Isosorbide Mononitrate ER) 60 Mg Tab 60 MG PO BID HOLD FOR AP RATE <50 Lactulose (Chronulac) 10 Gm/15 Ml Syrp 15 ML PO DAILY PRN for Constipation Levothyroxine Sodium (Levothyroxine Sodium) 175 Mcg Tab 1 TAB PO DAILY for 90 Days, #90 TAB 3 Refills Linaclotide (Linzess) 145 Mcg Cap 145 MCG PO QAM Lisinopril (Zestril) 40 Mg Tab 40 MG PO HS, #30 0 Refills Magnesium Oxide (Mag-Ox) 400 Mg Tab 400 MG PO BID, TAB Metoprolol Tartrate (Lopressor) 25 Mg Tab 12.5 MG PO BID Multiple Vitamin (Multivitamin) 1 Tab Tab 1 TABLET PO DAILY, TAB Nitroglycerin (Nitrostat) 0.4 Mg/1 Tab Subl 0.4 MG SL UD PRN for Chest Pain Potassium Chloride Microencaps (Potassium Chloride Er) 20 Meq Tab 20 MEQ PO DAILY, 3 Refills Ranitidine (Zantac) 150 Mg Tab 150 MG PO Q12 PRN for Heartburn, TAB Sennosides (Sennosides) 8.6 Mg Tab 17.2 MG PO BID GIVE 2 TABLETS TWO TIMES DAILY. Discontinued Medications: Amlodipine (Norvasc) 5 Mg Tab 5 MG PO DAILY, TAB Apixaban (Eliquis) 2.5 Mg Tab 2.5 MG PO BID Admission Information HPI (per Admitting provider): 86 year old female who presents to the ER with chest pain. Patient is currently a resident at [facility]. History is somewhat limited due to her underlying mental status. Chest pain started sometime throughout the night. She is unable to describe the pain. She reports "it wasn't too bad". She reports it radiated into her neck and and left arm. She also reports associated shortness of breath, diaphoresis, and nausea. Per ER documentation, patient was given 3 nitro tabs at the shelter and then went back to sleep. Patient reports she is currently chest pain free. Further history is unobtainable due to her mental status. Upon arrival to the ER, patient's BP was elevated at 205/88. EKG does not show any acute ST changes and initial troponin is negative. She was given IVF, Zofran, morphine, Carafate, Pepcid, nebulizer, GI cocktail, Ativan, and IV furosemide. BP initially improved but then love again to 210/90. She was given Hydralazine 10mg IV and BP has improved. Physical Exam (per Admitting): General Appearance: no apparent distress Head: normocephalic Eyes: normal inspection ENT: + pertinent finding (dry mucous membranes, [place]) Neck: supple, no JVD Respiratory/Chest: lungs clear, normal breath sounds, no respiratory distress Cardiovascular: regular rate, rhythm, no edema, normal peripheral pulses Abdomen/GI: normal bowel sounds, non tender, soft Extremities/Musculoskelatal: normal inspection, no calf tenderness Neurologic/Psych: no motor/sensory deficits, alert, normal mood/affect, oriented x 3 Skin: normal color, warm/dry Hospital Course 1. Chest pain: no further symptom since admission due to hypertensive urgency appreciate cardiology eval no evidence of ACS ECHO shows no evidence of wall motion abnormality pt will be continued with her out pt cardiac meds -Aspirin , Plavix , statin , Imdur, no beta doroteo Lopressor 12.5 mg BID Lopressor can be changed to Coreg if BP remains persistency elevated 2. Hypertensive urgency/hypertension: has underlying renal artery stenosis medical management as per family Possible caused transient episode of Hypertensive urgency pt is on multiple antihypertensive agents on Hydralazine 75 mg QID Norvasc dose increased to 10 mg PO daily appreciate cardiology eval recommend cont to titrate Hydralazine can be increased up to 100 mg QID If blood pressure to an acceptable range, carvedilol could be used in place of metoprolol to hopefully better control blood pressure. Lisinopril dose changed to PM dose to prevent hypertensive event in AM HX OF AFIB: appreciate cardiology input not sure fo the DX per cardiology 24 ECGs in this hospital system reviewed, dating back to 06/17/2006 and there was no evidence of atrial fibrillation. - no evidence of atrial fibrillation in her outpatient chart by Dr. Miranda when he last saw her in the outpatient cardiology office. -called [facility] D/w Karin Potts PA-C -pt does not have any prior hx of PE or DVT hx of Afib in chart agreeable to s/c Esperanza is there is no concrete evidence of Afib risk of bleeding on anticoagulation out weights benefit in this scenario Esperanza D/josué DNR/DNI DISPOSITION Resident at [facility] return to [facility] TODAY Discharge planning /medication changed D/w [facility] Karin Potts PA-c Total time spent on discharge = 40 MINS This includes examination of the patient, discharge planning, medication reconciliation, and communication with other providers. Discharge Instructions DI: Transfer Non Acute v4 Discharge Instructions Date of Service Feb 25, 2017. Admission Reason for Admission: Chest Pain, Rule Out Acute Myocardial Infarction Discharge Discharge Diagnosis / Problem: HYPERTENSIVE URGENCY Discharge Goals Goal(s): Improve disease control, Diagnostic testing, Therapeutic intervention Activity Recommendations Activity Level: Assistance Required Therapies: Physical Therapy, Occupational Therapy . Additional Information Patient informed of condition: Yes Advance Directives: Yes DNR: Yes Level of Care: Skilled Communicable Disease: No Prognosis: Stable Mcclure Catheter: No Instructions / Follow-Up Instructions / Follow-Up HOSPITAL FOLLOW UP WITH PHYSICIAN AT [facility] ANTIHYPERTENSIVE RECOMMENDATION : NORVASC INCREASED TO 10 MG DAILY ( CAN BE CHANGED TO PM DOSE IS IF PT HAS PERSISTENT AM HYPERTENSION ) LISINOPRIL 40 MG AT BEDTIME DAILY ( TO PREVENT AM HYPERTENSIVE EVENT ) METOPROLOL CAN BE CHANGED TO COREG TO BETTER CONTROL OF BP HYDRALAZINE CAN BE TITRATED UP TO 100 MG QID IF NEEDED WILL NEED VITALS CHECK IN MORNING FOR A WEEK , TILL BP STABILIZES NO DOCUMENTATION FOUND TO SUPPORT PT 'S DIAGNOSIS OF PAROXYSMAL AFIB -PT HAS BEEN NORMAL SINUS IN HOSPITAL STAY -PRIOR 24 EKGS REVIEW IN [facility] 2005 -SHOWS NO AFIB -NO PRIOR HX OF PE OR DVT -GIVEN ADVANCED AGE /DEMENTIA , NO CLEAR DIAGNOSIS OF AFIB -HIGH RISK FOR BLEEDING COMPLICATION WITH ANTICOAGULATION -ELIQUIS IS DISCONTINUED Current Hospital Diet Patient's current hospital diet: AHA Diet (Heart Healthy), Diabetes Type 2 Diet Discharge Diet Recommended Diet: AHA Diet (Heart Healthy), Low Sodium Diet (2gm Na) Pending Studies Studies pending at discharge: no Laboratory Results Hemoglobin A1c Test 12/24/16 04:40 Range/Units Estimated Average Glucose 143 mg/dl Hemoglobin A1c 6.6 H 4.5-5.6 % Lipid Panel Test 12/24/16 04:40 Range/Units Triglycerides Level 79 0-150 mg/dl Cholesterol Level 79 0-200 mg/dl HDL Cholesterol 33 mg/dl Cholesterol/HDL Ratio 2.4 LDL Cholesterol, Calculated 30 mg/dl Medical Emergencies . Who to Call and When: Medical Emergencies: If at any time you feel your situation is an emergency, please call 911 immediately. . Non-Emergent Contact Non-Emergency issues call your: Primary Care Provider . . "Provider Documentation" section prepared by Shelly Recio. . Core Measure Problem Core Measures: None Additional Copies To Dionisio Montez MD
[2017-02-26 11:42] VITALS: BP 144/76; PULSE 65; TEMP 36.5; O2SAT 94
[2017-02-26 12:00] VITALS: O2SAT 96
== END 2017-02-26 15:42 ==
LOC: C.EDA 06:22 → EDBD 06:22 → C.2E 09:50 → ENRESERV 09:53 → EDBEDREQ 09:54
PROVIDERS: ADMIT Internal Medicine; ATTEND Hospitalist
DX: I10 Essential (primary) hypertension (principal); I48.0 Paroxysmal atrial fibrillation; I25.10 Atherosclerotic heart disease of native coronary artery without angina pectoris; F32.9 Major depressive disorder, single episode, unspecified; E11.9 Type 2 diabetes mellitus without complications; I70.1 Atherosclerosis of renal artery; K21.9 Gastro-esophageal reflux disease without esophagitis; E78.5 Hyperlipidemia, unspecified; F03.90 Unspecified dementia, unspecified severity, without behavioral disturbance, psychotic disturbance, mood disturbance, and anxiety; E03.9 Hypothyroidism, unspecified; F48.2 Pseudobulbar affect; E53.8 Deficiency of other specified B group vitamins; Z82.49 Family history of ischemic heart disease and other diseases of the circulatory system; Z84.1 Family history of disorders of kidney and ureter; Z79.899 Other long term (current) drug therapy; Z79.4 Long term (current) use of insulin; Z86.73 Personal history of transient ischemic attack (TIA), and cerebral infarction without residual deficits; Z79.82 Long term (current) use of aspirin; Z79.02 Long term (current) use of antithrombotics/antiplatelets

== ENCOUNTER → 2017-02-28 | Outpatient (CLI) | payer OTHER ==
[~2017-02-28] MED LIST changes: +ACET-1311 PO; -AMLO-110 PO; -AMT24 PO; -BISA10SU7 RE; +CALC-452 PO; +CALC500C3 PO; -CALCTAB13 PO; +CITA10TA8 PO; -CITA20TA4 PO; -CLC100X PO; -CYAN10002 IM; +CYNI1000 IM; +DOCU-94 PO; -HEALTH SHAKE PO; -LEVO150T PO; +LEVO175T3 PO; +LINA1CAP PO; +MAGN400T6 PO; -MOML PO; +NRV5 PO; -POTA-335 PO; +POTA20TA13 PO; -PRLSR20 PO; -WARF-281 PO; -WARF7.5T4 PO; +ZNTT/150 PO
[2017-02-28 10:13] LABS: HEMATOCRIT 33.4 % (37-47); MEAN CELL VOLUME 98.8 fL (80-100); MEAN CORPUSCULAR HEMOGLOBIN 32.2 pg (25-34); MEAN CORPUSCULAR HGB CONC 32.6 g/dl (32-36); PLATELET COUNT 160 K/uL (130-400); RED BLOOD COUNT 3.38 M/uL (4.2-5.4); WHITE BLOOD COUNT 4.55 K/uL (4.8-10.8)
[2017-02-28 10:26] LABS: ALT/SGPT 26 U/L (12-78); BLOOD UREA NITROGEN 28 mg/dl (7-18); BUN/CREATININE RATIO 30.9 (10-20); CARBON DIOXIDE 27 mmol/L (21-32); CHLORIDE 108 mmol/L (98-107); CREATININE 0.91 mg/dl (0.60-1.20); GLUCOSE 70 mg/dl (70-99); MAGNESIUM 2.2 mg/dl (1.8-2.4); POTASSIUM 3.7 mmol/L (3.5-5.1); SODIUM 144 mmol/L (136-145)
[2017-02-28 10:36] LABS: ALB/GLOB RATIO 0.9 (0.9-2); ALKALINE PHOSPHATASE 62 U/L (45-117); AST/SGOT 17 U/L (15-37); THYROID STIMULATING HORMONE 0.717 uIu/ml (0.300-4.500)
[2017-02-28 11:29] LABS: CALCIUM 8.5 mg/dl (8.5-10.1)
== END | disposition home or self-care (01) ==
LOC: C.LABUPNIT 09:14
PROVIDERS: ATTEND Family Medicine
DX: I25.9 Chronic ischemic heart disease, unspecified (principal); E03.9 Hypothyroidism, unspecified; G89.29 Other chronic pain

== ENCOUNTER → 2017-03-22 | Outpatient (CLI) | payer OTHER ==
[2017-03-22 17:36] LABS: BASO % 0.3 %; BASO ABS # 0.02 K/uL (0-0.2); COMPLETE YES; EOS % 1.4 %; HEMATOCRIT 36.2 % (37-47); IG% 0.2 %; LYMPH ABS # 1.89 K/uL (1.2-3.4); MEAN CELL VOLUME 97.8 fL (80-100); MEAN CORPUSCULAR HGB CONC 33.7 g/dl (32-36); MEAN PLATELET VOLUME 12.3 fL (7.4-10.4); MONO % 10.2 %; NEUT % 55.9 %; PLATELET COUNT 145 K/uL (130-400)
== END ==
LOC: C.LABUPNIT 15:18
PROVIDERS: ATTEND Family Medicine
DX: R10.9 Unspecified abdominal pain (principal)

== ENCOUNTER → 2017-03-24 | Outpatient (CLI) | payer OTHER ==
[2017-03-24 08:59] LABS: ALT/SGPT 17 U/L (12-78); BLOOD UREA NITROGEN 29 mg/dl (7-18); BUN/CREATININE RATIO 28.8 (10-20); CALCIUM 8.8 mg/dl (8.5-10.1); CARBON DIOXIDE 24 mmol/L (21-32); CHLORIDE 109 mmol/L (98-107); GLUCOSE 74 mg/dl (70-99); POTASSIUM 4.1 mmol/L (3.5-5.1); SODIUM 142 mmol/L (136-145)
[2017-03-24 09:02] LABS: ALKALINE PHOSPHATASE 61 U/L (45-117); AST/SGOT 9 U/L (15-37)
== END ==
LOC: C.LABUPNIT 08:44
PROVIDERS: ATTEND Family Medicine
DX: R10.9 Unspecified abdominal pain (principal); R11.2 Nausea with vomiting, unspecified

== ENCOUNTER → 2017-04-01 | Outpatient (CLI) | payer OTHER ==
[2017-04-01 09:53] LABS: ESTIMATED AVERAGE GLUCOSE 131 mg/dl; HA1C FLAG Normal (Normal)
[2017-04-01 10:42] LABS: URINE APPEARANCE CLOUDY (CLEAR); URINE BILIRUBIN NEG (NEG); URINE COLOR YELLOW; URINE EPITHELIAL CELL AUTO >30 /lpf (0-5); URINE NITRITE NEG (NEG); URINE SPECIFIC GRAVITY 1.017 (1.000-1.030); UROBILINOGEN NEG (NEG)
[2017-04-01 10:59] LABS: MANUAL MICROSCOPIC REQUIRED? NO; REVIEW REQ? NO
--- NOTE | 2017-04-03 08:08 | CODING QUERY NO DIAGNOSIS ---
TREATMENT RENDERED WITHOUT A DIAGNOSIS To promote full compliance with coding requirements relating to patient care, physician participation is requested in all cases of svp business development uncertainty. Please assist us with providing a diagnosis/symptom for the test(s) below: A diagnosis/symptom was not documented on your Order. A valid diagnosis/symptom is required to bill all insurances. Please remember that we are unable to code a diagnosis of rule out, probable, possible, questionable, or suspected. DATE OF SERVICE: 04/01/17 Tests that require a diagnosis: * VITAMIN D DIAGNOSIS: * CRP DIAGNOSIS: Provider Signature: Date: Thank you Shanna Green [facility] Information Management Once completed, please kindly fax back to [phone] For questions please call [phone]
--- NOTE | 2017-04-16 07:32 | CODING QUERY MEDICAL NECESSITY ---
SUPPORTING DIAGNOSIS NEEDED Dr. Bowens, A supporting diagnosis is required for the test/procedure performed on this patient in order for us to be reimbursed by the patient's insurance. Please provide a supporting diagnosis for the following test/procedure listed below next to the test name along with your signature. *If there is no additional diagnosis for this patient that would support the following test/procedure please document that below next to the test/procedure. Test(s)/Procedure(s) that require a supporting diagnosis: * ([id number]) VITAMIN D ASSAY DIAGNOSIS: * [id number] GLYCATED HEMOGLOBIN DIAGNOSIS: DATE OF SERVICE: 04/01/17 Provider Signature: Date: Thank you Saran Hines [facility] Information Management Once completed, please kindly fax back to [phone] For questions please call [phone]
== END ==
LOC: C.LABUPNIT 08:47
PROVIDERS: ATTEND Family Medicine
DX: R82.5 Elevated urine levels of drugs, medicaments and biological substances (principal); M25.559 Pain in unspecified hip; E11.618 Type 2 diabetes mellitus with other diabetic arthropathy

== ENCOUNTER → 2017-05-17 | Outpatient (CLI) | payer OTHER ==
[2017-05-17 20:33] LABS: URINE APPEARANCE CLOUDY (CLEAR); URINE BILIRUBIN NEG (NEG); URINE COLOR YELLOW; URINE NITRITE NEG (NEG); URINE PH 7.5 (4.5-7.5); URINE SPECIFIC GRAVITY 1.018 (1.000-1.030); UROBILINOGEN NEG (NEG); ZZUR CULT IF INDIC CLEAN CATCH YES
[2017-05-17 20:37] LABS: MANUAL MICROSCOPIC REQUIRED? NO; REVIEW REQ? YES
[2017-05-17 20:44] LABS: SULFASALICYLIC ACID POS (NEG)
== END | disposition home or self-care (01) ==
LOC: C.LABUPNIT 19:00
PROVIDERS: ATTEND Nurse Practitioner Family
DX: R30.0 Dysuria (principal)

== ENCOUNTER → 2017-06-03 | Outpatient (CLI) | payer OTHER ==
[2017-06-03 09:38] LABS: ALT/SGPT 32 U/L (12-78); AST/SGOT 21 U/L (15-37); BLOOD UREA NITROGEN 25 mg/dl (7-18); BUN/CREATININE RATIO 29.6 (10-20); CALCIUM 8.8 mg/dl (8.5-10.1); CARBON DIOXIDE 30 mmol/L (21-32); CHLORIDE 108 mmol/L (98-107); CREATININE 0.85 mg/dl (0.60-1.20); GLUCOSE 46 mg/dl (70-99); POTASSIUM 4.2 mmol/L (3.5-5.1); SODIUM 142 mmol/L (136-145)
[2017-06-03 09:52] LABS: ALKALINE PHOSPHATASE 74 U/L (45-117); THYROID STIMULATING HORMONE 0.362 uIu/ml (0.300-4.500)
== END ==
LOC: C.LABUPNIT 08:49
PROVIDERS: ATTEND Nurse Practitioner Family
DX: E11.9 Type 2 diabetes mellitus without complications (principal); E03.9 Hypothyroidism, unspecified

== ENCOUNTER → 2017-06-24 | Outpatient (CLI) | payer OTHER ==
[2017-06-24 09:12] LABS: ESTIMATED AVERAGE GLUCOSE 131 mg/dl; HA1C FLAG Normal (Normal)
== END ==
LOC: C.LABUPBEA 08:07
PROVIDERS: ATTEND Nurse Practitioner Family
DX: E11.9 Type 2 diabetes mellitus without complications (principal); E03.9 Hypothyroidism, unspecified

== ENCOUNTER → 2017-09-02 | Outpatient (CLI) | payer OTHER | LOC: C.LABUPBEA 08:56 | PROVIDERS: ATTEND Nurse Practitioner Family | DX: E03.9 Hypothyroidism, unspecified (principal) ==

== ENCOUNTER → 2017-09-24 | Outpatient (CLI) | payer OTHER ==
[2017-09-24 08:55] LABS: HEMOGLOBIN A1C 6.6 % (4.5-5.6)
== END ==
LOC: C.LABUPBEA 07:46
PROVIDERS: ATTEND Nurse Practitioner Family
DX: E11.9 Type 2 diabetes mellitus without complications (principal); E03.9 Hypothyroidism, unspecified

== ENCOUNTER → 2017-10-24 | Outpatient (CLI) | payer OTHER ==
[~2017-10-24] MED LIST changes: +ACET-1693 PO; -ACET325T96 PO; +RANI150T85 PO; -ZNTT/150 PO
== END ==
LOC: C.LABUPBEA 08:32
PROVIDERS: ATTEND Nurse Practitioner Family
DX: E03.9 Hypothyroidism, unspecified (principal)

== ENCOUNTER → 2017-11-21 | Outpatient (CLI) | payer OTHER ==
[2017-11-21 12:22] LABS: INFLUENZA B ANTIGEN Neg for Influ B (NEG)
== END ==
LOC: C.LABUPBEA 11:36
PROVIDERS: ATTEND Nurse Practitioner Family
DX: J11.1 Influenza due to unidentified influenza virus with other respiratory manifestations (principal)

== ENCOUNTER → 2017-12-19 | Outpatient (CLI) | payer OTHER ==
[2017-12-19 09:16] LABS: HEMOGLOBIN A1C 6.8 % (4.5-5.6)
== END | disposition home or self-care (01) ==
LOC: C.LABUPBEA 07:48
PROVIDERS: ATTEND Nurse Practitioner Family
DX: E11.9 Type 2 diabetes mellitus without complications (principal)

== ENCOUNTER → 2018-04-09 | Outpatient (CLI) | payer OTHER ==
[~2018-04-09] MED LIST changes: -LACT10SO17 PO; +LACT10SO3 PO
[2018-04-09 10:06] LABS: CREATININE 0.98 mg/dl (0.60-1.20)
== END | disposition home or self-care (01) ==
LOC: C.LABUPBEA 09:29
PROVIDERS: ATTEND Nurse Practitioner Family
DX: E11.9 Type 2 diabetes mellitus without complications (principal)